=== PATIENT | male | born 1955 | race Caucasian/White ===

== ENCOUNTER → 2017-04-12 | Outpatient (CLI) | payer OTHER ==
--- NOTE | 2017-04-12 11:21 | XR ---
EXAMINATION TYPE: XR lumbosacral spine min 4V DATE OF EXAM: 04/12/2017 COMPARISON: NONE HISTORY: 61-year-old male low back pain TECHNIQUE: 5 views FINDINGS: Moderate degenerative joint space narrowing with endplate spondylosis and sclerosis at the L5-S1 leve l. Facet arthropathy mid to lower lumbar spine. Endplate spondylosis also noted at T11-T12 anteriorly and mild endplate spondylosis throughout. Vertebral body heights are preserved and alignment is main tained. 5 lumbar type vertebral bodies. IMPRESSION: 1. Facet arthropathy mid to lower lumbar spine. No vertebral compression collapse or malalignment. 2. Moderate disc/endplate degenerative change at L5-S1. Additional anterior endplate spondylosis most pronounced at T11-T12.
--- NOTE | 2017-04-12 11:22 | XR ---
EXAMINATION TYPE: XR Hip Complete RT DATE OF EXAM: 04/12/2017 COMPARISON: NONE HISTORY: 61-year-old male with right hip pain TECHNIQUE: 2 views FINDINGS: There is mild superolateral narrowing of hip joint space with marginal spurring and subchondral scler osis along the acetabular roof. No acute fracture, subluxation, or dislocation. IMPRESSION: Mild right hip osteoarthrosis. No acute osseous abnormality seen.
== END | disposition home or self-care (01) ==
LOC: RADXRYALE 09:06
PROVIDERS: ATTEND Internal Medicine
DX: M16.11 Unilateral primary osteoarthritis, right hip (principal); M46.96 Unspecified inflammatory spondylopathy, lumbar region; M47.817 Spondylosis without myelopathy or radiculopathy, lumbosacral region
CPT/HCPCS: 72110; 73502

== ENCOUNTER → 2019-06-07 | Outpatient (CLI) | payer OTHER ==
[2019-06-07 12:20] LABS: Appearance,Urine Clear (Clear); Bilirubin,Urine Negative (Negative); Blood,Urine Negative (Negative); Color,Urine Yellow; Glucose,Urine (UA) Trace (Negative); Ketones,Urine Negative (Negative); Leukocyte Esterase,Urine Negative (Negative); Nitrite,Urine Negative (Negative); Protein,Urine Trace (Negative); Specific Gravity,Urine 1.032 (1.001-1.035); Urobilinogen,Urine <2.0 mg/dL (<2.0)
[2019-06-07 12:26] LABS: HCT 40.9 % (39.0-53.0); HGB 13.8 gm/dL (13.0-17.5); MCH 30.9 pg (25.0-35.0); MCHC 33.8 g/dL (31.0-37.0); MCV 91.6 fL (80.0-100.0); Mean Platelet Volume 8.5; Platelet Count 148 k/uL (150-450); RBC 4.47 m/uL (4.30-5.90); RDW 13.1 % (11.5-15.5); WBC 7.3 k/uL (3.8-10.6)
[2019-06-07 12:38] LABS: ALT 47 U/L (4-49); AST 28 U/L (17-59); African American GFR (CKD) >90 (>60 ml/min/1.73 sqM); Albumin 4.8 g/dL (3.5-5.0); Alkaline Phosphatase 52 U/L (38-126); Anion Gap 11 mmol/L; Blood Urea Nitrogen 21 mg/dL (9-20); Calcium 9.7 mg/dL (8.4-10.2); Carbon Dioxide 22 mmol/L (22-30); Chloride 104 mmol/L (98-107); Glucose 145 mg/dL (74-99); Non-African American GFR(CKD) >90 (>60 ml/min/1.73 sqM); Potassium 4.7 mmol/L (3.5-5.1); Sodium 137 mmol/L (137-145); Total Bilirubin 0.7 mg/dL (0.2-1.3); Total Protein 7.5 g/dL (6.3-8.2)
== END | disposition home or self-care (01) ==
LOC: LABPAT 11:24
PROVIDERS: ATTEND Orthopaedic Surgery
DX: Z01.818 Encounter for other preprocedural examination (principal); Z01.812 Encounter for preprocedural laboratory examination; M16.12 Unilateral primary osteoarthritis, left hip; Z51.81 Encounter for therapeutic drug level monitoring
CPT/HCPCS: 80053; 81003; 85027; 85610; 85730; 87070; 93005

== ENCOUNTER 2019-06-13 05:33 | Day surgery (SDC) | payer OTHER ==
[2019-06-09 15:49] VITALS: BMI 33.0
[~2019-06-13 05:33] MED LIST: ACETAMINOPHEN TAB 500 MG TAB PO ONE; GABAPENTIN 300 MG CAP PO ONE; MELOXICAM 7.5 MG TAB PO ONE; TRANEXAMIC ACID 1,000 MG in SODIUM CHLORIDE 0.9% 100 ML IVPB ONE
[2019-06-13] MEDS ORDERED: ONDANSETRON 4 MG/2 ML VIAL IVP ONE (05:39)
[2019-06-13] MEDS ORDERED: SCOPOLAMINE 1.5MG/72HR PATCH TRANSDERM ONE (05:39)
[2019-06-13] MEDS ORDERED: MIDAZOLAM 2 MG/2 ML VIAL IV PRN (05:39)
[2019-06-13] MEDS ORDERED: HYDROmorphone 0.5 MG/0.5 ML SYRINGE IVP PRN ×3 (05:39→08:56)
[2019-06-13] MEDS ORDERED: DEXAMETHASONE SOD PHOSPHATE 10 MG/ML 1 ML VIAL IV ONE (05:39)
[2019-06-13] MEDS ORDERED: ROPIVACAINE 246.25 MG, EPINEPHrine 0.5 MG, KETOROLAC 30 MG, cloNIDine HCL/PF 80 MCG, WA... MISCELLANE ONE ×5 (06:00)
[2019-06-13 06:12] LABS: Glucose,Whole Blood 149 mg/dL (75-99)
[2019-06-13] MEDS: LACTATED RINGERS 1,000 ML IV SCH (06:12)
[2019-06-13] MEDS ORDERED: fentaNYL (PF) 50 MCG/ML 2 ML AMP ONE (06:53)
[2019-06-13] MEDS ORDERED: TRANEXAMIC ACID 1,000 MG/10 ML VIAL ONE (06:53)
[2019-06-13] MEDS ORDERED: LACTATED RINGERS 1,000 ML BAG IV ONE (06:53)
[2019-06-13] MEDS ORDERED: diphenhydrAMINE 50 MG/ML 1 ML VIAL ONE (06:53)
[2019-06-13] MEDS ORDERED: HEPARIN SODIUM,PORCINE 10,000 UNIT/ML 1 ML VIAL ONE (06:53)
[2019-06-13] MEDS ORDERED: SODIUM CHLORIDE 0.9% 100 ML BAG ONE (06:53)
[2019-06-13] MEDS ORDERED: KETAMINE 10 MG/ML 20 ML VIAL ONE (06:53)
[2019-06-13] MEDS ORDERED: PROPOFOL 10 MG/ML 20 ML VIAL IV ONE (06:53)
[2019-06-13] MEDS ORDERED: MIDAZOLAM 2 MG/2 ML VIAL ONE (06:53)
[2019-06-13] MEDS ORDERED: ceFAZolin 3,000 MG in SODIUM CHLORIDE 0.9% IRRIGATIO 3,000 ML IRRIGATION ONE (07:31)
[2019-06-13] MEDS ORDERED: LACTATED RINGERS 1,000 ML IV ONE (07:37)
--- NOTE | 2019-06-13 08:28 | P.OP ---
Date of Procedure: 06/13/19 Preoperative Diagnosis: Severe osteoarthritis left hip Postoperative Diagnosis: Severe osteoarthritis left hip Procedure(s) Performed: Left total hip arthroplasty with a direct anterior approach Implants: Licona and nephew Polarstem size 5 standard Licona [employer] Nephew R3, 3 hole acetabular shell, 58 mm Licona [employer] Nephew reflection 6.5 mm cancellus screw, 20 mm 2 Licona [employer] Nephew R3, XLPE 20 acetabular liner Licona [employer] Nephew Oxinium femoral head 36 m, +4 All components were press-fit. The articulation is Oxinium on polyethylene. Anesthesia: spinal Surgeon: Rustam Jeffers Records Associate #1: Cory Durbin Estimated Blood Loss (ml): 150 (69 mL returned with Cell Saver) Pathology: other (Femoral head) Condition: stable Disposition: PACU Indications for Procedure: After failure of conservative treatment we discussed the surgical and nonsurgical treatment options at length. Patient wishes to proceed with a total hip arthroplasty with a direct anterior approach. Complications specific to this procedure were discussed at length, including but not limited to infection, leg length discrepancy, dislocation, and nerve injury. Patient is aware of all these complications and informed consent was obtained Operative Findings: The operative findings are consistent with severe osteoarthritis of the left hip Description of Procedure: Patient was seen and evaluated in the preoperative area, consent was reviewed, and the surgical site was marked with a skin marker. Patient was then brought to the operating room and given prophylactic antibiotics intravenously. 1 g of Tranexamic acid was also given. A spinal anesthetic was administered by the anesthesia department. The patient was then placed on the [place] table with the bony prominences well-padded. The hip area was then prepped and draped in usual sterile fashion. A universal timeout was then performed, which confirmed the patient's name, surgical site, ALLERGIES, and procedure being performed. Next the incision site was located at 1 cm distal and 1 cm lateral to the anterior superior iliac spine. The skin and subcutaneous tissues were sharply incised. Incision was carefully dissected down to the fascia overlying the tensor fascia jonny muscle. This fascia was then incised in line with the incision. Next, using blunt finger dissection, the tensor fascia jonny muscle was dissected off its investing fascia. The muscle was then carefully retracted laterally with a cobra retractor over the lateral neck of the femur. Next, the circumflex vessels were identified and cauterized using the AquaMantis device. The anterior hip capsule was then exposed. The capsule was then opened and an inverted T fashion. Cobra retractors were then placed intracapsularly. The proximal femur was then visu alized. The femoral neck was then osteotomized appropriate level above the lesser trochanter. Small amount of traction was placed with the [place] table. A small wedge of bone was then removed from the remaining femoral head. Next, using a corkscrew femoral head was easily removed from the acetabulum. On gross visual inspection, the femoral head had complete loss of articular cartilage in multip le periarticular osteophytes. Attention was then turned to the acetabulum. the acetabulum was exposed and any remaining labrum was excised. Sequential reaming of the acetabulum was performed using fluoroscopic guidance. When the appropriate size was reached, a trial was then placed. The position and fit of the trial was checked with fluoroscopy. The trial was then removed. Then, using fluoroscopic guidance, the final implant was impacted at 20 of anteversion and 40 of abduction, and fully seated in the acetabulum. 2 screws were then placed in the acetabulum. Again fluoroscopy was used to check position of the screws. Next, the liner was then impacted, with a 20 elevated liner located in the anterior superior quadrant. Component locking was confirmed. Attention was then directed to the femur. With the aid of the [place] table, the femur was externally rotated to approximately 130, extended, and abducted under the opposite leg. A side hook was then placed under the proximal femur, and the side hook elevator was used to elevate the proximal femur. Retractors were then placed. A capsular release was performed, as well as a release of the conjoined tendon, which afforded excellent visualization of the proximal femur. Next, a box osteotome was used to lateralize the proximal femur. A pier hand was then used to locate the femoral canal. Sequential broaching was then performed with appropriate size which afforded excellent fixation in the proximal femur. A trial was then placed with appropriate head and neck, and the hip was gently reduced with the aid of the [place] table. Fluoroscopy was then used to check position of the components, as well as to ensure equal leg lengths. The hip was then gently dislocated and the trials were then removed. Final implants were then impacted and the hip was again reduced. Final fluoroscopic x-rays confirmed that the components were in anatomic position, as well as equal leg lengths. The hip was also taken through range of motion, and found to be stable. The hip was then copiously irrigated with antibiotic solution with pulsatile lavage. The hip was then irrigated with Irrisept solution. The soft tissues were then injected with a ropivacaine solution, which consisted of 246.25 mg of ropivacaine, 0.5 mg of epinephrine, 30 mg of Toradol, 80 g of clonidine, and 48.45 mL of sterile water, for a total of 100 mL of fluid injected. A second dose of 1 g of Tranexamic acid was also given. the fascia was then closed with 2-0 strata fix suture. The subcutaneous tissue was closed with 3-0 Vicryl. The subcuticular tissue was closed with 3-0 strata fix suture. The skin was then closed with Dermabond glue and a sterile silver dressing. The patient was then transferred to the recovery room in stable condition. The social services assistant MELISA Melendrez was required due to the complexity of surgery, and the need for skilled surgical territory manager for positioning, draping, exposure, retraction, and closure of the wound.
--- NOTE | 2019-06-13 08:54 | XR ---
EXAMINATION TYPE: XR Hip Limited LT, FL guidance operating room DATE OF EXAM: 06/13/2019 CLINICAL HISTORY: Fluoroscopic documentation during left hip arthroplasty TECHNIQUE: Fluoroscopy. COMPARISON: None. FINDINGS: Fluoroscopic guidance was provided during procedure performed by Dr. Jeffers. A total of 51 seconds of fluoroscopic time was utilized during the procedure and 2 spot images was acquired dur ing left hip arthroplasty. IMPRESSION: As Above.
[2019-06-13] MEDS ORDERED: HYDROmorphone 1 MG/ML 1 ML SYRINGE IVP PRN (08:56)
[2019-06-13] MEDS ORDERED: NALOXONE 0.4 MG/ML 1 ML VIAL IV PRN (08:56)
[2019-06-13] MEDS ORDERED: ONDANSETRON 4 MG/2 ML VIAL IVP PRN (08:56)
[2019-06-13] MEDS ORDERED: HYDROcodone/APAP 5-325MG 1 EACH TAB PO PRN (08:56)
[2019-06-13] MEDS ORDERED: hydrOXYzine PAMOATE 25 MG CAP PO PRN (08:56)
[2019-06-13 09:42] LABS: Glucose,Whole Blood 168 mg/dL (75-99)
--- NOTE | 2019-06-13 10:06 | XR ---
EXAMINATION TYPE: XR Hip Limited LT DATE OF EXAM: 06/13/2019 CLINICAL HISTORY: Left hip pain and osteoarthritis. TECHNIQUE: Single AP portable view of left hip is obtained immediately postoperatively. COMPARISON: None. FINDINGS: Metallic hardware from left hip arthroplasty is seen and appears satisfactory in alignment and position. There is evidence of recent surgery with subcutaneous gas noted laterally. IMPRESSION: Metallic hardware from left hip arthroplasty is satisfactory in position.
[2019-06-13 12:02] LABS: Glucose,Whole Blood 159 mg/dL (75-99)
[2019-06-13] MEDS: INSULIN ASPART (NovoLOG) 100 UNIT/ML VIAL SQ SCH ×3 (12:05→20:28)
--- NOTE | 2019-06-13 14:06 | P.CONS ---
History of Present Illness - Reason for Consult recommendations regarding antihypertensive and diabetic medications. - History of Present Illness is admitted for left hip arthroplasty successfully underwent surgery patient doesn't have a surgical drain doesn't have any Goel catheter patient is clinically doing well patient denied any significant pain patient denied any fever chills dysuria. Review of Systems REVIEW OF SYSTEMS: CONSTITUTIONAL: No fever, no malaise, no fatigue. HEENT: No recent visual problems or hearing problems. Denied any sore throat. CARDIOVASCULAR: No chest pain, orthopnea, PND, no palpitations, no syncope. PULMONARY: No shortness of breath, no cough, no hemoptysis. GASTROINTESTINAL: No diarrhea, no nausea, no vomiting, no abdominal pain. NEUROLOGICAL: No headaches, no weakness, no numbness. HEMATOLOGICAL: Denies any bleeding or petechiae. GENITOURINARY: Denies any burning micturition, frequency, or urgency. MUSCULOSKELETAL/RHEUMATOLOGICAL: Denies any joint pain, swelling, or any muscle pain. ENDOCRINE: Denies any polyuria or polydipsia. The rest of the 14-point review of systems is negative. Past Medical History Past Medical History: Diabetes Mellitus, Hyperlipidemia, Hypertension, O steoarthritis (OA) History of Any Multi-Drug Resistant Organisms: None Reported Additional Past Surgical History / Comment(s): Testicle removed. Past Anesthesia/Blood Transfusion Reactions: Family History of Problems w/ Anesthesia Additional Past Anesthesia/Blood Transfusion Reaction / Comm: "Dad allergic to anesthesia or some kind of medication had jerking and itching." Past Psychological History: No Psychological Hx Reported Smoking Status: Former smoker Past Alcohol Use History: Rare Additional Past Alcohol Use History / Comment(s): Quit smoking 10 yrs ago. Past Drug Use History: Marijuana Additional Drug Use History / Comment(s): Uses Marijuana "once in awhile", last used 30 days ago. - Past Family History Mother Family Medical History: Cancer, Deep Vein Thrombosis (DVT) Medications and Allergies Home Medications Medication Instructions Recorded Confirmed Type Acetaminophen [Tylenol Arthritis] 650 mg PO QAM 06/09/19 06/13/19 History Aspirin [Adult Low Dose Aspirin EC] 81 mg PO DAILY 06/09/19 06/13/19 History Atorvastatin [Lipitor] 40 mg PO HS 06/09/19 06/13/19 History Beet Root 1 dose PO Q48H 06/09/19 06/13/19 History Ferrous Sulfate [Iron] 325 mg PO DAILY 06/09/19 06/13/19 History Lisinopril 20 mg PO QAM 06/09/19 06/13/19 History Niacin (Inositol Niacinate) 500 mg PO DAILY 06/09/19 06/13/19 History [Niacin 500 mg Capsule] Leland-3 Fatty Acids/Fish Oil [Fish 1 each PO DAILY 06/09/19 06/13/19 History Oil 1,000 mg Softgel] Pioglitazone [Actos] 45 mg PO HS 06/09/19 06/13/19 History Super Enzyme 1 tab PO 1700 06/09/19 06/13/19 History metFORMIN HCL 1,000 mg PO BID 06/09/19 06/13/19 History sitaGLIPtin PHOSPHATE [Januvia] 100 mg PO QAM 06/09/19 06/13/19 History Allergies Allergy/AdvReac Type Severity Reaction Status Date / Time No Known Allergies Allergy Verified 06/13/19 06:00 Physical Exam Vitals: Vital Signs Temp Pulse Pulse Resp BP Pulse Ox 06/13/19 12:11 62 147/76 06/13/19 11:56 60 161/81 06/13/19 11:42 57 L 133/76 06/13/19 11:26 58 L 157/72 06/13/19 11:15 97.8 F 56 L 18 154/83 06/13/19 10:30 54 L 18 151/78 95 06/13/19 10:00 52 L 18 152/79 95 06/13/19 09:36 50 L 16 160/76 98 06/13/19 09:21 52 L 16 156/76 99 06/13/19 09:06 54 L 16 151/71 98 06/13/19 08:51 98.4 F 56 L 14 152/69 97 06/13/19 05:58 97.7 F 62 16 178/81 98 Intake and Output 06/12/19 06/13/19 06/13/19 22:59 06:59 14:59 Intake Total 1000 1091 Output Total 150 Balance 1000 941 Intake: IV 1000 851 Oral 240 Output: Estimated Blood Loss 150 Other: Weight 114.4 kg 114.4 kg PHYSICAL EXAMINATION: GENERAL: The patient is alert and oriented x3, not in any acute distress. Well developed, well nourished. HEENT: Pupils are round and equally reacting to light. EOMI. No scleral icterus. No conjunctival pallor. Normocephalic, atraumatic. No pharyngeal erythema. No thyromegaly. CARDIOVASCULAR: S1 and S2 present. No murmurs, rubs, or gallops. PULMONARY: Chest is clear to auscultation, no wheezing or crackles. ABDOMEN: Soft, nontender, nondistended, normoactive bowel sounds. No palpable organomegaly. MUSCULOSKELETAL: No joint swelling or deformity.patient's surgical site areas clean EXTREMITIES: No cyanosis, clubbing, or pedal edema. NEUROLOGICAL: Gross neurological examination did not reveal any focal deficits. SKIN: No rashes. Results Labs: Abnormal Lab Results - Last 24 Hours (Table) 06/13/19 06/13/19 06/13/19 Range/Units 06:10 09:40 12:01 POC Glucose (mg/dL) 149 H 168 H 159 H (75-99) mg/dL Assessment and Plan Plan: -type 2 diabetes mellitus patient will be resumed on his oral hypoglycemic agents except for metformin patient when sliding scale insulin as well -Hypertension: Hold off on DANNY inhibitor to prevent perioperative hypotension depending on her blood pressure early started this medication again -hyperlipidemia -Left hip arthroplasty patient is on DVT prophylaxis with 325 mg twice a day of aspirin
[2019-06-13] MEDS: HYDROcodone/APAP 5-325MG 1 EACH TAB PO PRN ×2 (15:24→20:27)
[2019-06-13 16:32] LABS: Glucose,Whole Blood 160 mg/dL (75-99)
[2019-06-13 20:14] LABS: Glucose,Whole Blood 155 mg/dL (75-99)
[2019-06-13] MEDS: ASPIRIN 325 MG TAB PO SCH (20:27)
[2019-06-13] MEDS ORDERED: SENNOSIDES-DOCUSATE SODIUM 1 EACH TAB PO SCH (21:00)
[2019-06-13] MEDS ORDERED: PIOGLITAZONE 45 MG TAB PO SCH (21:00)
[2019-06-13] MEDS ORDERED: ATORVASTATIN 40 MG TAB PO SCH (21:00)
[2019-06-14] MEDS: LACTATED RINGERS 1,000 ML IV SCH (00:38)
[2019-06-14 06:51] LABS: Glucose,Whole Blood 207 mg/dL (75-99)
[2019-06-14] MEDS: HYDROcodone/APAP 5-325MG 1 EACH TAB PO PRN (07:03)
[2019-06-14] MEDS: ASPIRIN 325 MG TAB PO SCH (07:04)
[2019-06-14] MEDS: INSULIN ASPART (NovoLOG) 100 UNIT/ML VIAL SQ SCH (07:06)
[2019-06-14 07:26] LABS: Basophils % (A) 1 %; Eosinophils # (A) 0.1 k/uL (0-0.7); Eosinophils % (A) 1 %; HCT 36.9 % (39.0-53.0); HGB 12.2 gm/dL (13.0-17.5); Lymphocytes # (A) 0.9 k/uL (1.0-4.8); Lymphocytes % (A) 11 %; MCH 30.3 pg (25.0-35.0); MCHC 33.1 g/dL (31.0-37.0); MCV 91.5 fL (80.0-100.0); Mean Platelet Volume 8.1; Monocytes # (A) 0.5 k/uL (0-1.0); Monocytes % (A) 6 %; Neutrophils # (A) 6.8 k/uL (1.3-7.7); Neutrophils % (A) 81 %; Platelet Count 141 k/uL (150-450); RBC 4.03 m/uL (4.30-5.90); RDW 12.9 % (11.5-15.5); WBC 8.4 k/uL (3.8-10.6)
[2019-06-14 08:12] VITALS: BP 162/74; PULSE 97; RESP 17; TEMP 97.6
[2019-06-14] MEDS ORDERED: LINAGLIPTIN 5 MG TABLET PO SCH (09:00)
[2019-06-14] MEDS ORDERED: NIACIN TR 500 MG CAPLET PO SCH (09:00)
[2019-06-14] MEDS ORDERED: LISINOPRIL 20 MG TAB PO SCH (09:30)
[2019-06-14 09:39] LABS: African American GFR (CKD) >90 (>60 ml/min/1.73 sqM); Anion Gap 8 mmol/L; Blood Urea Nitrogen 19 mg/dL (9-20); Calcium 9.1 mg/dL (8.4-10.2); Carbon Dioxide 23 mmol/L (22-30); Chloride 104 mmol/L (98-107); Glucose 201 mg/dL (74-99); Non-African American GFR(CKD) >90 (>60 ml/min/1.73 sqM); Potassium 4.5 mmol/L (3.5-5.1); Sodium 135 mmol/L (137-145)
--- NOTE | 2019-06-14 10:19 | P.DS ---
Providers Expected date of discharge: 06/14/19 Attending physician: Rustam Jeffers Consults: 06/13/19 08:56 Consult Physician Routine Consulting Provider: Lisa Lebron Consult Reason/Comments: medical management Do you want consulting provider notified?: Yes Primary care physician: Kimberley Yusuf [facility] Course: This is a 64-year-old male with known history of degenerative arthritis of the left hip. The patient presented to Dr. Jeffers for evaluation. After discussion and consideration patient elects to proceed with left total hip arthroplasty. The patient is seen preoperatively by Dr. Yusuf and cleared for surgery. Patient is admitted to [facility] on 06/13/19 for left total hip arthroplasty. The procedures performed without complication or sequelae. The patient is doing well postoperatively. Labs and vital signs are stable on day of discharge. The patient is examined bedside this morning. He states he is doing very well and is experiencing mild pain in the left hip, all else is well controlled at the time. He has been working with physical therapy this morning, and is ambulating with a walker with no issues. He has no complaints today. Patient denies chest pain, shortness of breath, nausea, vomiting, fevers, chills. He is tolerating his diet well. Vital signs stable. On examination, the patient is sitting up in the bedside chair in no apparent di stress. He is alert and oriented 3. On inspection of the left hip, there is a clean, dry, intact OptiForm dressing in place. There is no drainage to the dressing. There is mild pain on palpation of the left hip. Mild swelling of the left hip. Patient has good strength and range of motion of the left ankle. Motor and sensory function appear to be intact in the left lower extremity. The left lower extremity is warm and well perfused with brisk capillary refill distally. Dorsalis pedis pulse palpable. The left calf soft and nontender to palpation. Patient is discharged to home today with home health services in good condition, pending medical clearance. Please see med rec for accurate list of discharge medications. Patient Condition at Discharge: Fair Plan - Discharge Summary Discharge Rx Participant: No New Discharge Prescriptions: New Aspirin 325 mg PO BID 30 Days #60 tab Hydrocodone/Acetaminophen [[place] 5-325] 1 - 2 tab PO Q6H PRN #40 tab PRN Reason: Pain No Action Beet Root 1 dose PO Q48H Lisinopril 20 mg PO QAM Atorvastatin [Lipitor] 40 mg PO HS sitaGLIPtin PHOSPHATE [Januvia] 100 mg PO QAM metFORMIN HCL 1,000 mg PO BID Pioglitazone [Actos] 45 mg PO HS Super Enzyme 1 tab PO 1700 Sargeant-3 Fatty Acids/Fish Oil [Fish Oil 1,000 mg Softgel] 1 each PO DAILY Niacin (Inositol Niacinate) [Niacin 500 mg Capsule] 500 mg PO DAILY Ferrous Sulfate [Iron] 325 mg PO DAILY Aspirin [Adult Low Dose Aspirin EC] 81 mg PO DAILY Acetaminophen [Tylenol Arthritis] 650 mg PO QAM Discharge Medication List Acetaminophen [Tylenol Arthritis] 650 mg PO QAM 06/09/19 [History] Aspirin [Adult Low Dose Aspirin EC] 81 mg PO DAILY 06/09/19 [History] Atorvastatin [Lipitor] 40 mg PO HS 06/09/19 [History] Beet Root 1 dose PO Q48H 06/09/19 [History] Ferrous Sulfate [Iron] 325 mg PO DAILY 06/09/19 [History] Lisinopril 20 mg PO QAM 06/09/19 [History] Niacin (Inositol Niacinate) [Niacin 500 mg Capsule] 500 mg PO DAILY 06/09/19 [History] Sargeant-3 Fatty Acids/Fish Oil [Fish Oil 1,000 mg Softgel] 1 each PO DAILY 06/09/19 [History] Pioglitazone [Actos] 45 mg PO HS 06/09/19 [History] Super Enzyme 1 tab PO 1700 06/09/19 [History] metFORMIN HCL 1,000 mg PO BID 06/09/19 [History] sitaGLIPtin PHOSPHATE [Januvia] 100 mg PO QAM 06/09/19 [History] Aspirin 325 mg PO BID 30 Days #60 tab 06/14/19 [Rx] Hydrocodone/Acetaminophen [Hind[place] 5-325] 1 - 2 tab PO Q6H PRN #40 tab 06/14/19 [Rx] Follow up Appointment(s)/Referral(s): [facility] [NON-STAFF] - As Needed (clarice ) [facility], [NON-STAFF] - As Needed Kimberley Yusuf MD [Primary Care Provider] - 1 Week (office not answering please call to make appointment) Rustam Jeffers DO [Doctor of Osteopathic Medicine] - 06/28/19 2:00 pm Activity/Diet/Wound Care/Special Instructions: Weight-bear as tolerated on your operative leg. Use a walker for ambulation. Keep Optiform dressing in place for 7-10 days. May shower over dressing. Take pain medications as prescribed. Take aspirin for blood clot prevention as prescribed. Follow-up appointment with Dr. Jeffers in the office in 2 weeks. Call the office with any questions or concerns, Discharge Disposition: HOME WITH HOME HEALTH SERVICES
--- NOTE | 2019-06-14 10:21 | P.PN ---
Subjective Progress Note Date: 06/14/19 Principal diagnosis: This is a 64-year-old male who was recently admitted for left hip arthroplasty and successfully underwent surgery with . We were consulted for [facility] management regarding antihypertensive along with diabetic medications. Currently no reports of chest pain, shortness of breath, or palpitations. Patient is afebrile. No reports of nausea or vomiting and patient is tolerating diet. Patient has been up and working with physical therapy and has been walking with a walker through the halls with no difficulties. Patient will be restarted on antihypertensive medication of lisinopril as his blood pressure is 160s systolic. Will resume home medication. Patient will be continuing with home care for physical therapy and then will continue with physical therapy in the outpatient setting. Objective - Vital Signs Vital signs: Vital Signs Temp 97.6 F 06/14/19 07:00 Pulse 97 06/14/19 07:00 Resp 17 06/14/19 07:00 BP 162/74 06/14/19 07:00 Pulse Ox 97 06/14/19 07:00 Intake & Output 06/13/19 06/14/19 06/14/19 18:59 06:59 18:59 Intake Total 1091 60 Output Total 450 Balance 641 60 Weight 114.4 kg Intake: IV 851 Intake, IV Titration 60 Amount Lactated Ringers 1,000 ml 60 @ 20 mls/hr IV .Q24H [facility] Rx#:[id number] Oral 240 Output: Urine 300 Estimated Blood Loss 150 Other: Voiding Method Toilet # Voids 1 1 - Exam GENERAL: The patient is alert and oriented x3, not in any acute distress. Well developed, well nourished. Sitting up in the chair fully dressed after just walking the halls. HEENT: Pupils are round and equally reacting to light. EOMI. No scleral icterus. No conjunctival pallor. Normocephalic, atraumatic. No pharyngeal erythema. No thyromegaly. CARDIOVASCULAR: S1 and S2 present. No murmurs, rubs, or gallops. PULMONARY: Chest is clear to auscultation, no wheezing or crackles. ABDOMEN: Soft, nontender, nondistended, normoactive bowel sounds. No palpable organomegaly. MUSCULOSKELETAL: No joint swelling or deformity.patient's surgical site areas clean EXTREMITIES: No cyanosis, clubbing, or pedal edema. NEUROLOGICAL: Gross neurological examination did not reveal any focal deficits. SKIN: No rashes. - Labs CBC & Chem 7: 06/14/19 06:35 06/14/19 06:35 Labs: Abnormal Lab Results - Last 24 Hours (Table) 06/13/19 06/13/19 06/13/19 Range/Units 12:01 16:31 20:11 RBC (4.30-5.90) m/uL Hgb (13.0-17.5) gm/dL Hct (39.0-53.0) % Plt Count (150-450) k/uL Lymphocytes # (1.0-4.8) k/uL Sodium (137-145) mmol/L Glucose (74-99) mg/dL POC Glucose (mg/dL) 159 H 160 H 155 H (75-99) mg/dL 06/14/19 06/14/19 06/14/19 Range/Units 06:35 06:35 06:49 RBC 4.03 L (4.30-5.90) m/uL Hgb 12.2 L (13.0-17.5) gm/dL Hct 36.9 L (39.0-53.0) % Plt Count 141 L (150-450) k/uL Lymphocytes # 0.9 L (1.0-4.8) k/uL Sodium 135 L (137-145) mmol/L Glucose 201 H (74-99) mg/dL POC Glucose (mg/dL) 207 H (75-99) mg/dL Assessment and Plan Assessment: -type 2 diabetes mellitus patient will be resumed on all home medications -Hypertension: Blood pressure slightly elevated at 160 systolic today and will resume home medications. -hyperlipidemia -Left hip arthroplasty patient is on DVT prophylaxis with 325 mg twice a day of aspirin Plan: Continue with home medications. Will continue to follow along during hospitalization. Patient states he is being discharged today and waiting for his discharge paperwork.
[2019-06-14 21:12] LABS: Hemoglobin A1C 7.4 % (4.0-6.0)
== END 2019-06-14 12:07 | disposition home health service (06) ==
LOC: OR 05:33 → 4SSUR 10:34 → OR 06-14 12:07
PROVIDERS: ATTEND Orthopaedic Surgery
DX: M16.12 Unilateral primary osteoarthritis, left hip (principal); I10 Essential (primary) hypertension; E78.5 Hyperlipidemia, unspecified; E11.9 Type 2 diabetes mellitus without complications; Z79.82 Long term (current) use of aspirin; Z79.899 Other long term (current) drug therapy; Z87.891 Personal history of nicotine dependence; Z90.79 Acquired absence of other genital organ(s); Z79.84 Long term (current) use of oral hypoglycemic drugs
CPT/HCPCS: 97116; 97161; 97535; 97165; 86891; 86900; 86901; 80048; 85025; 86850; 88300; 83036; 73501; 36415; 27130; P9022; C1776; J2250; J0171; J1200; J1644; J0690 ×2; J2405; J3010; J1885; J2795; J2704; J0735; J1170

== ENCOUNTER → 2019-10-16 | Outpatient (CLI) | payer OTHER ==
--- NOTE | 2019-10-16 15:39 | XR ---
Right shoulder HISTORY: Right shoulder pain 3 views of the right shoulder Bone mineralization, joint spaces and alignment are maintained. No fracture or dislocation. Right aamir g apex as visualized is normal. IMPRESSION: Normal right shoulder.
== END | disposition home or self-care (01) ==
LOC: RADXRYALE 14:44
PROVIDERS: ATTEND Internal Medicine
DX: M25.511 Pain in right shoulder (principal)

== ENCOUNTER → 2023-01-29 | Outpatient (CLI) | payer MEDICARE, OTHER ==
--- NOTE | 2023-01-29 09:48 | CTL ---
EXAMINATION TYPE: CT Low Dose Lung DATE OF EXAM ORDERED: 01/29/2023 HISTORY: . Lung cancer screening CT DLP: 103.[address] CTDI: 2.6 mGy Automated exposure control for dose reduction was used. SCREENING VISIT: COMPARISON: None TECHNIQUE: Low dose computed tomography scan was performed through the chest at 1 mm thick sections a nd reconstructed images in multiple planes at 1 mm and [address] DIAGNOSTIC QUALITY: Satisfactory FINDINGS: There is a 3 mm nodule in the right upper lobe axial image 109. The heart is mildly prominent and there is dense coronary artery calcification. Atherosclerotic vázquez e aorta. There is evidence of cholelithiasis. There is pleural-based thickening and subsegmental areas of consolidation. No focal pneumonia, pleura l effusion or pneumothorax. No pleural calcifications. Emphysematous changes are noted. Small pericar dial effusion. There is degenerative change of the spine. Assessment for adenopathy is limited by noncontrast techni que. Grossly no pathologic adenopathy. Calcification aortic valve noted. There is a small hiatal nery ia. Aorta of normal caliber. IMPRESSION: 1. 3 mm nodule right upper lobe too small to characterize but likely benign. 2. Cholelithiasis X line 3. Dense coronary artery atherosclerotic disease correlate clinically. CT LUNG RAD AND CT CHEST RECOMMENDATION: Lung-Rad 2 Benign Appearance or Behavior: Continue annual sc reening with LDCT in 12 months. S Modifier (other clinically significant findings): None
== END | disposition home or self-care (01) ==
LOC: RADCTMAIN 07:07
PROVIDERS: ATTEND Internal Medicine
DX: Z12.2 Encounter for screening for malignant neoplasm of respiratory organs (principal); K80.20 Calculus of gallbladder without cholecystitis without obstruction; I25.10 Atherosclerotic heart disease of native coronary artery without angina pectoris; R91.1 Solitary pulmonary nodule; Z87.891 Personal history of nicotine dependence
CPT/HCPCS: 71271

== ENCOUNTER → 2023-01-29 | Outpatient (CLI) | payer MEDICARE, OTHER ==
--- NOTE | 2023-01-29 07:31 | US ---
EXAMINATION TYPE: US Aorta Screening DATE OF EXAM: 01/29/2023 COMPARISON: NONE CLINICAL INDICATION: Male, 67 years old with history of Z13.6 SCREEN FOR AAA; AAA screening TECHNIQUE: Multiple sonographic images of the abdominal aorta are obtained. FINDINGS: EXAM MEASUREMENTS: Abdominal Aorta: Proximal: 1.9 x 2.3 cm Mid: 1.8 x 1.8 cm Distal: 1.7 x 1.7 cm Bifurcation: TAMMY: 1.0 x 1.1 cm CECILY: 1.1 x 1.1 cm ELEVATOR DISPATCHER NOTES: No evidence of AAA Atherosclerotic manuel IMPRESSION: 1. No abdominal aortic aneurysm by screening ultrasound
== END | disposition home or self-care (01) ==
LOC: RADUSWWP 06:47
PROVIDERS: ATTEND Internal Medicine
DX: Z13.6 Encounter for screening for cardiovascular disorders (principal)
CPT/HCPCS: 76706

== ENCOUNTER → 2023-02-01 | Outpatient (CLI) | payer MEDICARE, OTHER ==
[2023-02-01 12:36] LABS: Basophils # (A) 0.09 X 10*3/uL (0.00-0.10); Basophils % (A) 1.2 %; Eosinophils # (A) 0.29 X 10*3/uL (0.04-0.35); HGB 14.3 d/dL (13.0-17.0); Lymphocytes # (A) 1.49 X 10*3/uL (0.90-5.00); Lymphocytes % (A) 20.7 %; MCH 29.9 pg (27.0-32.0); MCHC 31.8 d/dL (32.0-37.0); MCV 94.1 FL (80.0-97.0); Mean Platelet Volume 11.2 FL (9.5-12.2); Monocytes # (A) 0.52 X 10*3/uL (0.20-1.00); Monocytes % (A) 7.2 %; NRBC Per 100 WBC 0 X 10*3/uL (0.00-0.01); Neutrophils % (A) 66.6 %; Platelet Count 165 X 10*3/uL (140-440); RBC 4.78 X 10*6/uL (4.40-5.60); RDW 13.6 % (11.5-14.5); WBC 7.21 X 10*3/uL (4.50-10.00)
[2023-02-01 12:52] LABS: ALT 35 U/L (10-49); AST 23 U/L (14-35); Albumin 4.6 d/dL (3.8-4.9); Albumin/Globulin Ratio 2.19 Ratio (1.60-3.17); Alkaline Phosphatase 61 U/L (41-126); BUN/Creat Ratio 18.75 Ratio (12.00-20.00); Calcium 9.7 mg/dL (8.7-10.3); Carbon Dioxide 23.5 mmol/L (21.6-31.8); Chloride 104 mmol/L (96-109); Chol/HDL Ratio 4.08 Ratio; Globulin 2.1 d/dL (1.6-3.3); Glucose 134 mg/dL (70-110); LDL Cholesterol,Calculated 93.6 mg/dL (0.0-131.0); Magnesium 1.5 mg/dL (1.5-2.4); Potassium 4.9 mmol/L (3.5-5.5); Prostate Specific Antigen 2.03 ng/mL (0.000-4.500); Sodium 141 mmol/L (135-145); Total Bilirubin 0.5 mg/dL (0.3-1.2); Total Protein 6.7 d/dL (6.2-8.2); Uric Acid 4.6 mg/dL (3.7-8.7)
== END | disposition home or self-care (01) ==
LOC: LABWHC1 07:19
PROVIDERS: ATTEND Internal Medicine
DX: Z12.5 Encounter for screening for malignant neoplasm of prostate (principal); Z11.59 Encounter for screening for other viral diseases; E11.9 Type 2 diabetes mellitus without complications; M10.9 Gout, unspecified
CPT/HCPCS: 36415; 80053; 80061; 83735; 84153; 84443; 84550; 85025; 86803

== ENCOUNTER 2023-05-31 05:25 | Observation (INO) | payer MEDICARE, OTHER ==
--- NOTE | 2023-05-31 05:54 | ED ---
General Adult HPI - General Source: patient Mode of arrival: ambulatory Limitations: no limitations <Viraj Mejía - Last Filed: 05/31/23 06:50> <Luis F Bentley - Last Filed: 05/31/23 08:05> - General Chief complaint: Chest Pain Stated complaint: SOB Time Seen by Provider: 05/31/23 05:48 - History of Present Illness Initial comments: Dictation was produced using [employer] dictation software. please excuse any grammatical, word or spelling errors. Chief Complaint: 68-year-old male presents to the ER for chest pain History of Present Illness: Patient is a 68-year-old male presents emergency department for chest pain states that the chest pain is to his lower chest radiates to his back. States that it woke him up from sleep. Denies that he feels like this is his heart or his lungs. He was diagnosed with pleurisy in the past. Patient denies any numbness tingling to his arms or legs he states that the pain is severe. Denies that his symptoms feel significantly worse with deep inspiration. The ROS documented in this emergency department record has been reviewed and confirmed by me. Those systems with pertinent positive or negative responses have been documented in the HPI. All other systems are other negative and/or noncontributory. (Viraj Mejía) 68-year-old male with lower chest, epigastric pain radiated to his back. I did reevaluate the patient after signout, his symptoms have improved but not resolved. He continues to have lower chest pain. This pain was described as severe both by the patient and the previous physician. CTA of the aorta was performed which was negative for aneurysmal change or dissection, no acute findings. Patient has normal liver enzymes, negative lipase, negative initial troponin. He will be observed overnight with serial cardiac enzymes, telemetry. Case discussed with sound physician group. (Luis F Bentley) - Related Data Home Medications Medication Instructions Recorded Confirmed Acetaminophen [Tylenol Arthritis] 650 mg PO QAM 06/09/19 07/01/21 Atorvastatin [Lipitor] 40 mg PO HS 06/09/19 07/01/21 Ferrous Sulfate [Iron] 325 mg PO DAILY 06/09/19 07/01/21 Niacin (Inositol Niacinate) 500 mg PO DAILY 06/09/19 07/01/21 [Niacin 500 mg Capsule] Pioglitazone [Actos] 45 mg PO HS 06/09/19 07/01/21 lisinopriL 20 mg PO QAM 06/09/19 07/01/21 metFORMIN HCL [Glucophage] 1,000 mg PO BID 06/09/19 07/01/21 Aspirin EC [Ecotrin Low Dose] 81 mg PO DAILY 07/01/21 07/01/21 Empagliflozin [Jardiance] 25 mg PO DAILY 07/01/21 07/01/21 Semaglutide [Rybelsus] 3 mg PO DAILY 07/01/21 07/01/21 Previous Rx's Medication Instructions Recorded HYDROcodone/APAP 7.5-325MG [Lytle 1 each PO Q6HR PRN #28 tab 07/03/21 7.5] Allergies Allergy/AdvReac Type Severity Reaction Status Date / Time No Known Allergies Allergy Verified 07/03/21 07:50 Review of Systems ROS Other: All systems not noted in ROS Statement are negative. <Viraj Mejía - Last Filed: 05/31/23 06:50> ROS Other: All systems not noted in ROS Statement are negative. <Luis F Bentley - Last Filed: 05/31/23 08:05> ROS Statement: Those systems with pertinent positive or pertinent negative responses have been documented in the HPI. Past Medical History Past Medical History: Diabetes Mellitus, Hyperlipidemia, Hypertension, O steoarthritis (OA) History of Any Multi-Drug Resistant Organisms: None Reported Past Surgical History: Joint Replacement Additional Past Surgical History / Comment(s): Testicle removed- A TEEN. LT SALMA. COLONOSCOPY Past Anesthesia/Blood Transfusion Reactions: Family History of Problems w/ Anesthesia Additional Past Anesthesia/Blood Transfusion Reaction / Comment(s): "Dad allergic to anesthesia or some kind of medication had jerking and itching." Past Psychological History: No Psychological Hx Reported Smoking Status: Former smoker - Past Family History Mother Family Medical History: Cancer, Deep Vein Thrombosis (DVT) <Viraj Mejía - Last Filed: 05/31/23 06:50> General Exam Limitations: no limitations <Viraj Mejía - Last Filed: 05/31/23 06:50> - General Exam Comments Initial Comments: PHYSICAL EXAM: General Impression: Alert and oriented x3, distress secondary to pain HEENT: Normocephalic atraumatic, extra-ocular movements intact, pupils equal and reactive to light bilaterally, mucous membranes moist. Cardiovascular: Heart regular rate and rhythm Chest: Able to complete full sentences, no retractions, no tachypnea Abdomen: abdomen soft, non-tender, non-distended, no organomegaly Musculoskeletal: Pulses present and equal in all extremities, no peripheral edema Motor: no focal deficits noted Neurological: CN II-XII grossly intact, no focal motor or sensory deficits noted Skin: Intact with no visualized rashes Psych: Normal affect and mood (Virja Mejía) Course Vital Signs 05/31/23 05/31/23 05/31/23 05:26 05:45 05:49 Temperature 98 F Pulse Rate 51 L 56 L 56 L Respiratory 18 22 18 Rate Blood Pressure 217/80 210/80 178/77 O2 Sat by Pulse 100 100 98 Oximetry EKG Findings - EKG Comments: EKG Findings:: My EKG interpretation: Ventricular rate 51, sinus bradycardia,. 176, QRS 104, QTc 388. No CO prolongation, no QTC prolongation, no ST or T-wave changes noted. Overall, this EKG is unremarkable <Viraj Mejía - Last Filed: 05/31/23 06:50> Medical Decision Making - Lab Data Result diagrams: 05/31/23 05:40 05/31/23 05:40 <Viraj Mejía - Last Filed: 05/31/23 06:50> - Lab Data Result diagrams: 05/31/23 05:40 05/31/23 05:40 <Luis F Bentley - Last Filed: 05/31/23 08:05> - Medical Decision Making Was pt. sent in by a medical professional or institution (, PA, MANUFACTURING BUSINESS ANALYST, urgent care, hospital, or longterm...) When possible be specific @ -No Did you speak to anyone other than the patient for history (EMS, parent, family, police, friend...)? What history was obtained from this source @ -No Did you review nursing and triage notes (agree or disagree)? Why? @ -I reviewed and agree with nursing and triage notes Were old charts reviewed (outside hosp., previous admission, EMS record, old EKG, old radiological studies, urgent care reports/EKG's, longterm records)? Report findings @ -No old charts were reviewed Differential Diagnosis (chest pain, altered mental status, abdominal pain women, abdominal pain men, vaginal bleeding, musculoskeletal, weakness, fever, dyspnea, syncope, headache, dizziness, GI bleed, back pain, seizure, CVA, palpatations, mental health)? @ -Differential Chest Pain: Stable Angina, Unstable Angina, STEMI, NSTEMI Aortic Dissection, Pneumothorax, Musculoskeletal, Esophageal Spasm GERD, Cholecystitis, Pancreatitis, Zoster, this is not meant to be an all-inclusive list. EKG interpreted by me (3pts min.). @ -See above X-rays interpreted by me (1pt min.). @ -None done CT interpreted by me (1pt min.). @ - U/S interpreted by me (1pt. min.). @ -None done What testing was considered but not performed or refused? (CT, X-rays, U/S, labs)? Why? @ -None What meds were considered but not given or refused? Why? @ -None Did you discuss the management of the patient with other professionals (professionals i.e. , PA, MANUFACTURING BUSINESS ANALYST, lab, RT, psych nurse, social media campaign manager, electrical calibrator, teacher, escrow officer, patient case manager)? Give summary @ -No Was smoking cessation discussed for >3mins.? @ -No Was critical care preformed (if so, how long)? @ -No Were there social determinants of health that impacted care today? How? (Homelessness, low income, unemployed, alcoholism, drug addiction, transportation, low edu. Level, literacy, decrease access to med. care, alf, rehab)? @ -No Was there de-escalation of care discussed even if they declined (Discuss DNR or withdrawal of care, Hospice)? DNR status @ -No What co-morbidities impacted this encounter? (DM, HTN, Smoking, COPD, CAD, Cancer, CVA, ARF, Chemo, Hep., AIDS, mental health diagnosis, sleep apnea, m orbid obesity)? @ -None Was patient admitted / discharged? Hospital course, mention meds given and route, prescriptions, significant lab abnormalities, going to OR and other pertinent info. @ -68-year-old male presents to the emergency department with chest pain. Patient acute distress at bedside. Vital signs upon arrival are within acceptable limits. He did report symptoms of chest pain that radiate to the back raising suspicion of possible aortic dissection versus pancreatitis. EKG is unremarkable. Laboratory evaluation is within acceptable limits. Troponin is negative. Pending CT angiography. Patient care signed out to Dr. Bentley at 7:00 AM Undiagnosed new problem with uncertain prognosis? @ -No Drug Therapy requiring intensive monitoring for toxicity (Heparin, Nitro, Insu darron, Cardizem)? @ -No Were any procedures done? @ -No Diagnosis/symptom? Acute, or Chronic, or Acute on Chronic? Uncomplicated (without systemic symptoms) or Complicated (systemic symptoms)? @ -Chest pain (GuillermonViraj D) - Lab Data Lab Results 05/31/23 05/31/23 05/31/23 Range/Units 05:40 05:40 05:40 WBC 12.5 H (3.8-10.6) k/uL RBC 4.87 (4.30-5.90) m/uL Hgb 14.4 (13.0-17.5) gm/dL Hct 44.6 (39.0-53.0) % MCV 91.5 (80.0-100.0) fL MCH 29.5 (25.0-35.0) pg MCHC 32.2 (31.0-37.0) g/dL RDW 13.1 (11.5-15.5) % Plt Count 174 (150-450) k/uL MPV 8.7 Neutrophils % 81 % Lymphocytes % 12 % Monocytes % 4 % Eosinophils % 1 % Basophils % 1 % Neutrophils # 10.1 H (1.3-7.7) k/uL Lymphocytes # 1.5 (1.0-4.8) k/uL Monocytes # 0.5 (0-1.0) k/uL Eosinophils # 0.2 (0-0.7) k/uL Basophils # 0.1 (0-0.2) k/uL PT 10.2 (10.0-12.5) sec INR 0.9 (<1.2) APTT 23.1 (22.0-30.0) sec Sodium 139 (137-145) mmol/L Potassium 4.3 (3.5-5.1) mmol/L Chloride 106 (98-107) mmol/L Carbon Dioxide 23 (22-30) mmol/L Anion Gap 10 mmol/L BUN 20 (9-20) mg/dL Creatinine 0.64 L (0.66-1.25) mg/dL Est GFR (CKD-EPI)AfAm >90 (>60 ml/min/1.73 sqM) Est GFR (CKD-EPI)NonAf >90 (>60 ml/min/1.73 sqM) Glucose 268 H (74-99) mg/dL Calcium 10.0 (8.4-10.2) mg/dL Total Bilirubin 0.8 (0.2-1.3) mg/dL AST 25 (17-59) U/L ALT 37 (4-49) U/L Alkaline Phosphatase 75 (38-126) U/L Troponin I (0.000-0.034) ng/mL Total Protein 7.3 (6.3-8.2) g/dL Albumin 4.8 (3.5-5.0) g/dL Lipase 130 (23-300) U/L 05/31/23 Range/Units 05:40 WBC (3.8-10.6) k/uL RBC (4.30-5.90) m/uL Hgb (13.0-17.5) gm/dL Hct (39.0-53.0) % MCV (80.0-100.0) fL MCH (25.0-35.0) pg MCHC (31.0-37.0) g/dL RDW (11.5-15.5) % Plt Count (150-450) k/uL MPV Neutrophils % % Lymphocytes % % Monocytes % % Eosinophils % % Basophils % % Neutrophils # (1.3-7.7) k/uL Lymphocytes # (1.0-4.8) k/uL Monocytes # (0-1.0) k/uL Eosinophils # (0-0.7) k/uL Basophils # (0-0.2) k/uL PT (10.0-12.5) sec INR (<1.2) APTT (22.0-30.0) sec Sodium (137-145) mmol/L Potassium (3.5-5.1) mmol/L Chloride (98-107) mmol/L Carbon Dioxide (22-30) mmol/L Anion Gap mmol/L BUN (9-20) mg/dL Creatinine (0.66-1.25) mg/dL Est GFR (CKD-EPI)AfAm (>60 ml/min/1.73 sqM) Est GFR (CKD-EPI)NonAf (>60 ml/min/1.73 sqM) Glucose (74-99) mg/dL Calcium (8.4-10.2) mg/dL Total Bilirubin (0.2-1.3) mg/dL AST (17-59) U/L ALT (4-49) U/L Alkaline Phosphatase (38-126) U/L Troponin I <0.012 (0.000-0.034) ng/mL Total Protein (6.3-8.2) g/dL Albumin (3.5-5.0) g/dL Lipase (23-300) U/L Disposition <Viraj Mejía - Last Filed: 05/31/23 06:50> Is patient prescribed a controlled substance at d/c from ED?: No Time of Disposition: 08:05 <Luis F Bentley - Last Filed: 05/31/23 08:05> Clinical Impression: Chest pain Disposition: ADMITTED IP TO THIS HOSP Condition: Stable Referrals: Kvng Parikh DO [Primary Care Provider] - 1-2 days
[2023-05-31 06:02] LABS: Basophils # (A) 0.1 k/uL (0-0.2); Basophils % (A) 1 %; Eosinophils # (A) 0.2 k/uL (0-0.7); Eosinophils % (A) 1 %; HCT 44.6 % (39.0-53.0); HGB 14.4 gm/dL (13.0-17.5); Lymphocytes # (A) 1.5 k/uL (1.0-4.8); Lymphocytes % (A) 12 %; MCH 29.5 pg (25.0-35.0); MCHC 32.2 g/dL (31.0-37.0); MCV 91.5 fL (80.0-100.0); Mean Platelet Volume 8.7; Monocytes # (A) 0.5 k/uL (0-1.0); Monocytes % (A) 4 %; Neutrophils # (A) 10.1 k/uL (1.3-7.7); Neutrophils % (A) 81 %; Platelet Count 174 k/uL (150-450); RBC 4.87 m/uL (4.30-5.90); RDW 13.1 % (11.5-15.5); WBC 12.5 k/uL (3.8-10.6)
[2023-05-31 06:21] LABS: INR 0.9 (<1.2); Partial Thromboplastin Time 23.1 sec (22.0-30.0); Prothrombin Time 10.2 sec (10.0-12.5)
[2023-05-31 06:26] LABS: ALT 37 U/L (4-49); AST 25 U/L (17-59); African American GFR (CKD) >90 (>60 ml/min/1.73 sqM); Albumin 4.8 g/dL (3.5-5.0); Alkaline Phosphatase 75 U/L (38-126); Anion Gap 10 mmol/L; Blood Urea Nitrogen 20 mg/dL (9-20); Carbon Dioxide 23 mmol/L (22-30); Chloride 106 mmol/L (98-107); Glucose 268 mg/dL (74-99); Lipase 130 U/L (23-300); Non-African American GFR(CKD) >90 (>60 ml/min/1.73 sqM); Potassium 4.3 mmol/L (3.5-5.1); Sodium 139 mmol/L (137-145); Total Bilirubin 0.8 mg/dL (0.2-1.3); Total Protein 7.3 g/dL (6.3-8.2)
[2023-05-31] MEDS: MORPHINE SULFATE 4 MG/ML SYRINGE IV STA (06:28)
--- NOTE | 2023-05-31 06:57 | XR ---
EXAMINATION TYPE: XR chest 2V DATE OF EXAM: 05/31/2023 COMPARISON: NONE HISTORY: Abdominal pain and shortness of breath TECHNIQUE: Frontal and lateral views of the chest are obtained. FINDINGS: There is no focal air space opacity, pleural effusion, or pneumothorax seen. The cardiac silhouette size is upper limits of normal. The osseous structures are intact. IMPRESSION: No acute pulmonary process.
--- NOTE | 2023-05-31 07:34 | CT ---
EXAMINATION TYPE: CT angio thor/abd DATE OF EXAM: 05/31/2023 COMPARISON: None HISTORY: chest pain, radiating around back CT DLP: 2317.8 mGycm CONTRAST: CTA thoracic and abdominal aorta with 3-D reconstruction is performed and without and with IV Contras t, patient injected with 100 mL of Isovue 300. Contrast CTA of the thoracic and abdominal aorta was performed from the lung apex through the base of the pelvis. 3-D reconstruction imaging obtained at a separate workstation. CT Chest: THORACIC AORTA: There is no evidence for aneurysm. No dissection or mediastinal hematoma. Mild ath eromatous changes are seen. LUNGS: The lungs are clear and free of infiltrate or atelectasis. Mild scattered emphysematous vázquez es noted. No pulmonary nodule or mass is detected. No pleural effusion or CT evidence of interstitia l lung disease. MEDIASTINUM: The heart is not enlarged. No evidence for mediastinal mass or adenopathy. HILAR STRUCTURES: No evidence for mass. No hilar adenopathy is appreciated. OTHER: No significant abnormality. CONTRAST CT ABDOMEN AND PELVIS ABDOMINAL AORTA: No evidence for abdominal aortic aneurysm. No dissection. Iliac vessels are symmet antony and patent. LIVER/GB-there is evidence of a complicated cyst. 2. PANCREAS- No significant abnormality is seen. SPLEEN- No significant abnormality is seen. ADRENALS- No significant abnormality is seen. KIDNEYS/BLADDER- No significant abnormality is seen. BOWEL- No Significant abnormality GENITAL ORGANS: No gross abnormality seen. LYMPH NODES- No greater than 1cm abdominal or pelvic lymph nodes are appreciated. OSSEOUS STRUCTURES-degenerative changes lower lumbar spine. OTHER- No significant abnormality is seen. IMPRESSION- No evidence for thoracic or abdominal aortic aneurysm or dissection. Scattered atheromatous change se en. Uncomplicated cholelithiasis.
[2023-05-31] MEDS ORDERED: ONDANSETRON 4 MG/2 ML VIAL IVP PRN (08:03)
[2023-05-31] MEDS ORDERED: MORPHINE SULFATE 4 MG/ML SYRINGE IV PRN (08:03)
[2023-05-31] MEDS ORDERED: NALOXONE 0.4 MG/ML 1 ML VIAL IV PRN (08:03)
[2023-05-31] MEDS: MORPHINE SULFATE 4 MG/ML SYRINGE IVP STA (08:36)
[2023-05-31] MEDS: SODIUM CHLORIDE 0.9% 1,000 ML IV SCH (08:41)
[2023-05-31] MEDS: ASPIRIN 325 MG TAB PO STA (08:41)
[2023-05-31 10:01] LABS: Appearance,Urine Clear (Clear); Bilirubin,Urine Negative (Negative); Blood,Urine Negative (Negative); Color,Urine Colorless; Glucose,Urine (UA) 4+ (Negative); Ketones,Urine Negative (Negative); Leukocyte Esterase,Urine Negative (Negative); Nitrite,Urine Negative (Negative); Protein,Urine Negative (Negative); Specific Gravity,Urine >1.050 (1.001-1.035); Urobilinogen,Urine <2.0 mg/dL (<2.0)
--- NOTE | 2023-05-31 12:27 | P.CRDCN ---
History of Present Illness Consult date: 05/31/23 Consult reason: chest pain History of present illness: History of present illness: This is a 68-year-old man with past medical history of diabetes mellitus type 2, hyperlipidemia, hypertension, We have been asked to evaluate the patient for chest pain. Patient states that he had the flu about 7 to 10 days ago and feels like he has had a relapse. The last 2 days he is been sitting up coughing with a little sputum production. He also complains of a headache. He complains of right lateral rib pain and increased abdominal distention. He then developed some low sternal to mid back pain. Patient is seen today in the emergency center waiting for bed on the observation unit. EKG sinus rhythm with no acute change Chest x-ray: No acute process CTA of the chest: No thoracic or abdominal aortic aneurysm or dissection. Scattered atheromatous changes seen. Uncomplicated cholelithiasis. WBC 12.5, hemoglobin 14.4, platelet count 174. INR 0.9. Electrolytes normal. BUN 20 creatinine 0.64. Blood sugar 268. Troponin negative x 2. Liver function test are normal. Lipase 130. Urinalysis 4+ glucose. Home cardiac medications: Aspirin 81 mg daily, atorvastatin 80 mg at bedtime, lisinopril 20 mg daily. Review Of Systems: At the time of my exam: CONSTITUTIONAL: Denies fever or chills. HEENT: Denies blurred vision, vision changes, or eye pain. Denies hemoptysis CARDIOVASCULAR: + chest pain. Denies orthopnea. Denies PND. Denies palpitations RESPIRATORY: Denies shortness of breath. + Cough, + sputum production. GASTROINTESTINAL: Denies abdominal pain. Denies nausea or vomiting. HEMATOLOGIC: Denies bleeding disorders. GENITOURINARY: Denies any blood in urine. SKIN: Denies pruitis. Denies rash. Physical examination: Gen: This is a 68-year-old male in no acute distress. VS: reviewed HEENT: Head is atraumatic, normocephalic. Pupils equal, round. Sclerae is anicteric. NECK: Supple. No JVD. LUNGS: Clear to auscultation. No wheezes or rhonchi. No intercostal retractions. HEART: Regular rate and rhythm. No murmur. ABDOMEN: Soft No tenderness. EXTREMITIES: No pedal edema. No calf tenderness. NEUROLOGICAL: Patient is awake, alert and oriented x3. Assessment: Chest pain most likely musculoskeletal etiology from coughing, rule out acute coronary syndrome Recent influenza Diabetes mellitus type 2 Hypertension Hyperlipidemia Plan: Resume patient's home cardiac medications Repeat troponins Obtain 2-D echocardiogram and Doppler study to assess cardiac structure and function If troponins and echocardiogram are unremarkable, patient is cleared for discharge. Thank you kindly for this consultation. Nurse practitioner note has been reviewed, I agree with documented findings and plan of care. Patient was seen and examined. Past Medical History Past Medical History: Diabetes Mellitus, Hyperlipidemia, Hypertension, Osteoarthritis (OA) History of Any Multi-Drug Resistant Organisms: None Reported Past Surgical History: Joint Replacement Additional Past Surgical History / Comment(s): Testicle removed- A TEEN. LT SALMA. COLONOSCOPY Past Anesthesia/Blood Transfusion Reactions: Family History of Problems w/ Anesthesia Additional Past Anesthesia/Blood Transfusion Reaction / Comment(s): "Dad allergic to anesthesia or some kind of medication had jerking and itching." Past Psychological History: No Psychological Hx Reported Smoking Status: Former smoker - Past Family History Mother Family Medical History: Cancer, Deep Vein Thrombosis (DVT) Medications and Allergies Home Medications Medication Instructions Recorded Confirmed Type Ferrous Sulfate [Iron] 325 mg PO DAILY 06/09/19 05/31/23 History lisinopriL 20 mg PO DAILY 06/09/19 05/31/23 History metFORMIN HCL [Glucophage] 1,000 mg PO BID 06/09/19 05/31/23 History Aspirin EC [Ecotrin Low Dose] 81 mg PO DAILY 07/01/21 05/31/23 History Empagliflozin [Jardiance] 25 mg PO DAILY 07/01/21 05/31/23 History Acetaminophen [Tylenol Arthritis] 1,300 mg PO Q8H PRN 05/31/23 05/31/23 History Atorvastatin [Lipitor] 80 mg PO HS 05/31/23 05/31/23 History Cyanocobalamin (Vitamin B-12) 1,000 mcg PO DAILY 05/31/23 05/31/23 History [Vitamin B-12] Dulaglutide [Trulicity] 1.5 mg SQ MO 05/31/23 05/31/23 History Niacin 500 mg PO DAILY 05/31/23 05/31/23 History Pioglitazone [Actos] 30 mg PO DAILY 05/31/23 05/31/23 History Allergies Allergy/AdvReac Type Severity Reaction Status Date / Time No Known Allergies Allergy Verified 05/31/23 11:28 Physical Exam Vitals: Vital Signs Temp Pulse Resp BP Pulse Ox 05/31/23 05:49 56 L 18 178/77 98 05/31/23 05:45 56 L 22 210/80 100 05/31/23 05:26 98 F 51 L 18 217/80 100 Intake and Output 05/30/23 05/31/23 05/31/23 22:59 06:59 14:59 Other: Weight 108.862 kg Results 05/31/23 05:40 05/31/23 05:40 Cardiac Enzymes 05/31/23 05/31/23 Range/Units 05:40 05:40 AST 25 (17-59) U/L Troponin I <0.012 (0.000-0.034) ng/mL Coagulation 05/31/23 Range/Units 05:40 PT 10.2 (10.0-12.5) sec APTT 23.1 (22.0-30.0) sec CBC 05/31/23 Range/Units 05:40 WBC 12.5 H (3.8-10.6) k/uL RBC 4.87 (4.30-5.90) m/uL Hgb 14.4 (13.0-17.5) gm/dL Hct 44.6 (39.0-53.0) % Plt Count 174 (150-450) k/uL Comprehensive Metabolic Panel 05/31/23 Range/Units 05:40 Sodium 139 (137-145) mmol/L Potassium 4.3 (3.5-5.1) mmol/L Chloride 106 (98-107) mmol/L Carbon Dioxide 23 (22-30) mmol/L BUN 20 (9-20) mg/dL Creatinine 0.64 L (0.66-1.25) mg/dL Glucose 268 H (74-99) mg/dL Calcium 10.0 (8.4-10.2) mg/dL AST 25 (17-59) U/L ALT 37 (4-49) U/L Alkaline Phosphatase 75 (38-126) U/L Total Protein 7.3 (6.3-8.2) g/dL Albumin 4.8 (3.5-5.0) g/dL Current Medications Generic Name Dose Route Start Last Admin Trade Name Freq PRN Reason Stop Dose Admin Sodium Chloride 1,000 mls @ 75 mls/hr 05/31/23 08:15 05/31/23 08:41 Saline 0.9% IV 75 mls/hr .[id number] JUAN Administration Morphine Sulfate 4 mg 05/31/23 08:03 Morphine Sulfate 4 Mg/Ml Syringe IV Q4HR PRN Severe Pain (Scale 7 to 10) Naloxone HCl 0.2 mg 05/31/23 08:03 Naloxone 0.4 Mg/Ml 1 Ml Vial IV Q2M PRN Opioid Reversal Ondansetron HCl 4 mg 05/31/23 08:03 Ondansetron 4 Mg/2 Ml Vial IVP Q8HR PRN Nausea And Vomiting Intake and Output 05/30/23 05/31/23 05/31/23 22:59 06:59 14:59 Other: Weight 108.862 kg 05/31/23 05:40 05/31/23 05:40
[2023-05-31] MEDS: lisinopriL 20 MG TAB PO SCH (13:16)
[2023-05-31] MEDS ORDERED: DEXTROSE 50% SYRINGE 50 ML IVP PRN ×2 (16:12)
--- NOTE | 2023-05-31 16:23 | P.HPIM ---
History of Present Illness H&P Date: 05/31/23 68 year old M with PMH of DM, HTN, HLDA presents to the ED for chest pain. Symptoms started last night around 11PM. Patient reports recovering from the Flu over the past 2 weeks. He has had a residual cough due to this. Chest pain is epigastric, constant, sharp and stabbing with radiation to the ba ck. No aggravating or alleviating factors. Tried taking Tums which did not help. Chest pain was associated with dry heaves. When symptoms were persistent into today this prompted him to go to the ED. In the ED he underwent extensive evaluation. BP 217/80 HR 51 RR 18 100% on RA T 98F. CBC, Coag panel, CMP was signficant for WBC 12.5, Cr 0.64, glu 268. Lipase 130. Troponin < 0.012 x 3. EKG sinus bradycardia. UA 4+ glucose. CTA chest and abdomen showed cholelithiasis and atheromatous changes. Patient is admitted for chest pain, rule out ACS and cardiology evaluation. General: non toxic, no distress, appears at stated age Derm: warm, dry Head: atraumatic, normocephalic, symmetric Eyes: EOMI, no lid lag, anicteric sclera Mouth: no lip lesion, mucus membranes moist Cardiovascular: S1S2 reg, no murmur Abd: Non tender to palpation, not distended. Lungs: CTA bilateral, no rhonchi, no rales , no accessory muscle use Ext: no gross muscle atrophy, no edema, no contractures Neuro: no focal neuro deficits Psych: Alert, oriented, appropriate affect Based on my assessment of this patient, this patient meets a high complexity level of care. Patient has an acute diagnosis of chest pain that poses a threat to life or bodily function. Chest pain: GI versus cardiac. ACS ruled out. Cardiology consulted, recommends Echocardiogram. ASA 81 mg PO QD. Lipitor 80 mg PO QHS. Telemetry monitoring. DM with hyperglycemia: Start insulin sliding scale. Accuchecks ACHS. Hypoglycemic precautions. Leukocytosis: Mildly elevated. No signs of active infection. Continue to monitor. CODE STATUS: FULL CODE DVT Prophylaxis: Lovenox SQ GI Prophylaxis: Designated medical POA if patient is not able to make medical decisions for themselves: I have reviewed the following strategic consultant notes: ED, Cardiology note. I have reviewed the results of the following tests: As above. I have ordered the following tests: As above. I have discussed the care of this patient with the following independent histor leigh ann: . I have independently interpreted the following test below: EKG, CXR. I have discussed the management of this patient with the following physician: Past Medical History Past Medical History: Diabetes Mellitus, Hyperlipidemia, Hypertension, Osteoar thritis (OA) History of Any Multi-Drug Resistant Organisms: None Reported Past Surgical History: Joint Replacement Additional Past Surgical History / Comment(s): Testicle removed- A TEEN. LT SALMA. COLONOSCOPY Past Anesthesia/Blood Transfusion Reactions: Family History of Problems w/ Anesthesia Additional Past Anesthesia/Blood Transfusion Reaction / Comment(s): "Dad nicci rgic to anesthesia or some kind of medication had jerking and itching." Past Psychological History: No Psychological Hx Reported Smoking Status: Former smoker - Past Family History Mother Family Medical History: Cancer, Deep Vein Thrombosis (DVT) Medications and Allergies Home Medications Medication Instructions Recorded Confirmed Type Ferrous Sulfate [Iron] 325 mg PO DAILY 06/09/19 05/31/23 History lisinopriL 20 mg PO DAILY 06/09/19 05/31/23 History metFORMIN HCL [Glucophage] 1,000 mg PO BID 06/09/19 05/31/23 History Aspirin EC [Ecotrin Low Dose] 81 mg PO DAILY 07/01/21 05/31/23 History Empagliflozin [Jardiance] 25 mg PO DAILY 07/01/21 05/31/23 History Acetaminophen [Tylenol Arthritis] 1,300 mg PO Q8H PRN 05/31/23 05/31/23 History Atorvastatin [Lipitor] 80 mg PO HS 05/31/23 05/31/23 History Cyanocobalamin (Vitamin B-12) 1,000 mcg PO DAILY 05/31/23 05/31/23 History [Vitamin B-12] Dulaglutide [Trulicity] 1.5 mg SQ MO 05/31/23 05/31/23 History Niacin 500 mg PO DAILY 05/31/23 05/31/23 History Pioglitazone [Actos] 30 mg PO DAILY 05/31/23 05/31/23 History Allergies Allergy/AdvReac Type Severity Reaction Status Date / Time No Known Allergies Allergy Verified 05/31/23 11:28 Physical Exam Vitals: Vital Signs Temp Pulse Resp BP Pulse Ox 05/31/23 13:00 70 16 149/78 97 05/31/23 05:49 56 L 18 178/77 98 05/31/23 05:45 56 L 22 210/80 100 05/31/23 05:26 98 F 51 L 18 217/80 100 Intake and Output 05/31/23 05/31/23 05/31/23 06:59 14:59 22:59 Other: Weight 108.862 kg Results CBC & Chem 7: 05/31/23 05:40 05/31/23 05:40 Labs: Abnormal Lab Results - Last 24 Hours (Table) 05/31/23 05/31/23 05/31/23 Range/Units 05:40 05:40 09:05 WBC 12.5 H (3.8-10.6) k/uL Neutrophils # 10.1 H (1.3-7.7) k/uL Creatinine 0.64 L (0.66-1.25) mg/dL Glucose 268 H (74-99) mg/dL Ur Specific [place] >1.050 H (1.001-1.035) Urine Glucose (UA) 4+ H (Negative)
[2023-05-31] MEDS: INSULIN ASPART (NovoLOG) 100 UNIT/ML VIAL SQ SCH (17:28)
[2023-05-31 17:35] LABS: Glucose,Whole Blood 171 mg/dL (70-110)
[2023-05-31 19:03] VITALS: RESP 16
[2023-05-31 20:29] LABS: Glucose,Whole Blood 137 mg/dL (70-110)
[2023-05-31] MEDS: ATORVASTATIN 80 MG TAB PO SCH (20:35)
[2023-06-01 06:15] LABS: Glucose,Whole Blood 176 mg/dL (70-110)
[2023-06-01] MEDS: ENOXAPARIN 40 MG/0.4 ML SYRINGE SQ SCH (08:18)
[2023-06-01] MEDS: ASPIRIN 81 MG PO SCH (08:18)
[2023-06-01 08:34] VITALS: BP 175/76; PULSE 64; TEMP 98.5
--- NOTE | 2023-06-01 12:06 | CA ---
Transthoracic Echo Report Name: Sean Garcia Age: 68 Gender: M : 1955 Exam Date: 06/01/2023 09:31 Exam Location: [facility] Ht (in): 73 Wt (lb): 240 Ordering Physician: Donna Burgos Attending/Referring Phys: [id number], Loretta Restaurant Host Janelle Dove RDCS Procedure CPT: Indications: LVF Cardiac Hx: Technical Quality: Fair Contrast 1: Total Dose (mL): Contrast 2: Total Dose (mL): MEASUREMENTS (Male / Female) Normal Values 2D ECHO LV Diastolic Diameter PLAX 4.2 cm 4.2 - 5.9 / 3.9 - 5.3 cm LV Systolic Diameter PLAX 3.1 cm IVS Diastolic Thickness 1.6 cm 0.6 - 1.0 / 0.6 - 0.9 cm LVPW Diastolic Thickness 1.6 cm 0.6 - 1.0 / 0.6 - 0.9 cm LV Relative Wall Thickness 0.8 RV Internal Dim ED PLAX 4.3 cm LA Volume 64.8 cm??? 18 - 58 / 22 - 52 cm??? LA Volume Index 27.0 cm???/m??? 16 - 28 cm???/m??? M-MODE Aortic Root Diameter MM 3.6 cm LA Systolic Diameter MM 4.6 cm LA Ao Ratio MM 1.3 AV Cusp Separation MM 2.1 cm DOPPLER AV Peak Velocity 177.7 cm/s AV Peak Gradient 12.6 mmHg AV Mean Velocity 118.1 cm/s AV Mean Gradient 6.5 mmHg AV Velocity Time Integral 34.2 cm LVOT Peak Velocity 102.0 cm/s LVOT Peak Gradient 4.2 mmHg LVOT Velocity Time Integral 22.4 cm MV Area PHT 4.6 cm??? Mitral E Point Velocity 82.1 cm/s Mitral A Point Velocity 92.1 cm/s Mitral E to A Ratio 0.9 MV Deceleration Time 164.6 ms MV E' Velocity 6.0 cm/s Mitral E to MV E' Ratio 13.7 FINDINGS Left Ventricle Moderately increased left ventricular wall thickness. Left ventricular cavity size normal. Normal left ventricular systolic function with no obvious regional wall motion abnormalities. Left ventricular ejection fraction is estimated at 55-60 %. Right Ventricle Moderate right ventricular dilatation. Right ventricular systolic pressure within normal limits. Right Atrium Normal right atrial size. Left Atrium Mildly increased left atrial volume. Mitral Valve Structurally normal mitral valve. Mitral valve thickened. Mild mitral annular calcification. Mild mitral regurgitation. Aortic Valve Trileaflet aortic valve. No aortic valve stenosis or regurgitation. Tricuspid Valve Structurally normal tricuspid valve. Mild tricuspid regurgitation. Pulmonic Valve Structurally normal pulmonic valve. Trace pulmonic regurgitation. Pericardium No pericardial effusion. Aorta Normal size aortic root and proximal ascending aorta. CONCLUSIONS Normal LV function Previewed by: Dr. Lester Ramirez MD (Electronically Signed) Final Date: 01 June 2023 12:05
--- NOTE | 2023-06-01 12:26 | P.PN ---
Subjective Progress Note Date: 06/01/23 Consult reason: chest pain History of present illness: This is a 68-year-old man with past medical history of diabetes mellitus type 2, hyperlipidemia, hypertension, We have been asked to evaluate the patient for chest pain. Patient states that he had the flu about 7 to 10 days ago and feels like he has had a relapse. The last 2 days he is been sitting up coughing with a little sputum production. He also complains of a headache. He complains of right lateral rib pain and increased abdominal distention. He then developed some low sternal to mid back pain. Patient is seen today in the emergency center waiting for bed on the observation unit. EKG sinus rhythm with no acute change Chest x-ray: No acute process CTA of the chest: No thoracic or abdominal aortic aneurysm or dissection. Scattered atheromatous changes seen. Uncomplicated cholelithiasis. WBC 12.5, hemoglobin 14.4, platelet count 174. INR 0.9. Electrolytes normal. BUN 20 creatinine 0.64. Blood sugar 268. Troponin negative x 2. Liver function test are normal. Lipase 130. Urinalysis 4+ glucose. Home cardiac medications: Aspirin 81 mg daily, atorvastatin 80 mg at bedtime, lisinopril 20 mg daily. 3/5 Patient seen today on the observation unit. Troponins have been negative x 3. Echocardiogram reveals normal normal LV function. Physical examination: Gen: This is a 68-year-old male in no acute distress. VS: reviewed HEENT: Head is atraumatic, normocephalic. Pupils equal, round. Sclerae is anicteric. NECK: Supple. No JVD. LUNGS: Clear to auscultation. No wheezes or rhonchi. No intercostal retractions. HEART: Regular rate and rhythm. No murmur. ABDOMEN: Soft No tenderness. EXTREMITIES: No pedal edema. No calf tenderness. NEUROLOGICAL: Patient is awake, alert and oriented x3. Assessment: Chest pain most likely musculoskeletal etiology from coughing, rule out acute coronary syndrome Recent influenza Diabetes mellitus type 2 Hypertension Hyperlipidemia Plan: Continue patient's home cardiac medications Patient is cleared for discharge and may follow-up in 1 to 2 weeks for outpatient stress test. Cardiology will sign off this case and follow on an as-needed basis. Please reconsult for any new concerns. Nurse practitioner note has been reviewed, I agree with documented findings and plan of care. Patient was seen and examined. Objective - Vital Signs Vital signs: Vital Signs Temp 98.9 F 06/01/23 04:15 Pulse 66 06/01/23 04:15 Resp 16 06/01/23 04:15 BP 122/62 06/01/23 04:15 Pulse Ox 94 L 06/01/23 04:15 FiO2 Intake & Output 05/31/23 06/01/23 06/01/23 18:59 06:59 18:59 Intake Total 240 Balance 240 Weight 108.862 kg Intake: Oral 240 Other: # Voids 1 - Labs CBC & Chem 7: 05/31/23 05:40 05/31/23 05:40 Labs: Abnormal Lab Results - Last 24 Hours (Table) 05/31/23 05/31/23 05/31/23 Range/Units 09:05 17:24 20:28 POC Glucose (mg/dL) 171 H 137 H (70-110) mg/dL Ur Specific [place] >1.050 H (1.001-1.035) Urine Glucose (UA) 4+ H (Negative) 06/01/23 Range/Units 06:13 POC Glucose (mg/dL) 176 H (70-110) mg/dL Ur Specific [place] (1.001-1.035) Urine Glucose (UA) (Negative)
[2023-06-01 12:55] LABS: Glucose,Whole Blood 170 mg/dL (70-110)
--- NOTE | 2023-06-01 13:03 | P.DS ---
Providers Date of admission: 05/31/23 08:04 Expected date of discharge: 06/01/23 Attending physician: Aniya Smith DO Consults: 05/31/23 08:03 Consult Physician Routine Consulting Provider: Bryson Baker Consult Reason/Comments: CP Do you want consulting provider notified?: Yes [facility] Hospital Course: Discharge Diagnosis: Chest/epigastric pain, acute coronary event ruled out. Pain currently resolved. CT did show stable cholelithiasis without acute cholecystitis. Patient started on Protonix 40 mg daily. It is recommended patient follow-up outpatient with dry kiln loader, Dr. Ramirez for further evaluation. Patient cleared from cardiac perspective as cardiac workup negative. Patient to follow-up outpatient with PCP in 1 to 2 days, handicapped teacher in 1 week, and dry kiln loader in 1 to 2 weeks. Hypertension. Continue daily medication regimen with lisinopril 20 mg daily. Hyperlipidemia. Continue daily medication regimen with atorvastatin 80 mg nightly. Type II sub-ejyxcpd-khedtcngp diabetes mellitus. Continue daily medication regimen with Glucophage 1000 mg twice daily, Jardiance 25 mg daily, Actos 30 mg daily, and Trulicity 1.5 mg weekly. Hospital Course: Patient is a pleasant 68-year-old male with a past medical history of hypertension, hyperlipidemia, and type II ybr-ouramwi-zypzuchjd diabetes [place]. He presented to the emergency department on 05/31/2023 with a chief complaint of chest/epigastric pain radiating into his back. He underwent full evaluation in the emergency department. Upon arrival to our facility patient in hypertensive urgency with blood pressure 217/80, heart rate 51, respiratory rate 18, temp 98.0 F, and SpO2 of 100% on room air. EKG was completed showing sinus bradycardia at 51 bpm with no significant T wave or ST abnormalities showing no signs of acute ischemia. Chest x-ray completed negative for acute cardiopulmonary process. CTA chest and abdomen completed showing no evidence for thoracic or abdominal aortic aneurysm or dissection, scattered atheromatous changes and uncomplicated cholelithiasis. Labs were completed and reviewed. CBC showing mild leukocytosis with WBC count of 12.5. Coagulation profile normal findings. BMP unremarkable with exception of hyperglycemia with glucose of 268. Liver profile unremarkable. Lipase normal finding at 130. Troponin was negative at less than 0.012. Patient was admitted under our services with consultation to cardiology. Troponins were trended overnight all negative at less than 0.012 x 3 draws. Echocardiogram was completed showing a preserved EF of 55 to 60% with no significant structural or valvular abnormalities reported. Patient reports being free from previous reported epigastric pain/discomfort at this time. Cardiology clearing patient from cardiac perspective for discharge. Discussed with patient, recommend outpatient follow-up with dry kiln loader to further evaluate for gastric ulcer and if pain returns may need further evaluation of gallbladder. Medically, patient is stable for discharge at this time, patient to follow-up outpatient with PCP in 1 to 2 days, cardiology in 1 week, and recommend outpatient follow-up with dry kiln loader. Patient discharged home on Protonix 40 mg daily in addition to his current medication regimen. Physical exam: Patient seen and examined at bedside. Vital signs reviewed and stable. General: Nontoxic, no distress and appears stated age. Derm: Skin warm and dry, normal coloration for ethnicity. Head: Atraumatic, normocephalic and symmetric. Eyes: EOMs intact, no lid lag, and anicteric sclera Mouth: no lip lesions, mucus membranes moist Cardiovascular: regular rate and rhythm with normal S1S2, no murmur, positive posterior tibial pulses bilaterally, and cap refill < 2 seconds. Lungs: Respirations even, regular, and unlabored on room air. Lungs CTA bilate rally, no rhonchi, no rales, no wheezing, and no accessory muscle usage. Abdominal: soft, nontender to palpation, no guarding, no appreciable organomegaly Ext: ROM intact. No gross muscle atrophy, no edema, no contractures Neuro: Speech clear, face symmetrical and CN II-XII grossly intact with no noted focal neuro deficits Psych: Alert and oriented to person, place, time, and situation. Appropriate and pleasant affect. A total of 32 minutes of time were spent preparing this complex discharge summary. Pt was discharged on 06/01/2023 at 12:57 PM. Patient was seen independently by Nurse Practitioner. This document was prepared using [employer] dictation software. Please allow for errors in microelectronics assembler while rare they do occur. Jose Cole NP rendered care for this patient independently, reviewed the findings and plan as documented in the note above. I did not physically speak with or examine the patient on this date. Patient Condition at Discharge: Stable Plan - Discharge Summary New Discharge Prescriptions: New Pantoprazole [Protonix] 40 mg PO DAILY 90 Days #90 tab Continue lisinopriL 20 mg PO DAILY metFORMIN HCL [Glucophage] 1,000 mg PO BID Ferrous Sulfate [Iron] 325 mg PO DAILY Atorvastatin [Lipitor] 80 mg PO HS Dulaglutide [Trulicity] 1.5 mg SQ MO Cyanocobalamin (Vitamin B-12) [Vitamin B-12] 1,000 mcg PO DAILY Aspirin EC [Ecotrin Low Dose] 81 mg PO DAILY Empagliflozin [Jardiance] 25 mg PO DAILY Niacin 500 mg PO DAILY Pioglitazone [Actos] 30 mg PO DAILY Acetaminophen [Tylenol Arthritis] 1,300 mg PO Q8H PRN PRN Reason: Pain Discharge Medication List Ferrous Sulfate [Iron] 325 mg PO DAILY 06/09/19 [History] lisinopriL 20 mg PO DAILY 06/09/19 [History] metFORMIN HCL [Glucophage] 1,000 mg PO BID 06/09/19 [History] Aspirin EC [Ecotrin Low Dose] 81 mg PO DAILY 07/01/21 [History] Empagliflozin [Jardiance] 25 mg PO DAILY 07/01/21 [History] Acetaminophen [Tylenol Arthritis] 1,300 mg PO Q8H PRN 05/31/23 [History] Atorvastatin [Lipitor] 80 mg PO HS 05/31/23 [History] Cyanocobalamin (Vitamin B-12) [Vitamin B-12] 1,000 mcg PO DAILY 05/31/23 [History] Dulaglutide [Trulicity] 1.5 mg SQ MO 05/31/23 [History] Niacin 500 mg PO DAILY 05/31/23 [History] Pioglitazone [Actos] 30 mg PO DAILY 05/31/23 [History] Pantoprazole [Protonix] 40 mg PO DAILY 90 Days #90 tab 06/01/23 [Rx] Follow up Appointment(s)/Referral(s): Shane Dailey MD [STAFF PHYSICIAN] - 1 Week Kvng Parikh DO [Primary Care Provider] - 1-2 days Lizy Ramirez MD [STAFF PHYSICIAN] - 1 Week (Please schedule an appointment for eval and possible EGD) Activity/Diet/Wound Care/Special Instructions: Activity: As tolerated. Take breaks as needed. Diet: Heart healthy and carb consistent diet. Avoid salts, or foods with hidden salts such as canned or boxed foods and frozen dinners. Extra salt makes your heart work harder and traps the fluid in your body for longer. Special Instructions: Take all of your medications as directed and remember to keep all of your doctor's appointments and follow-up as needed. Thank you for allowing us to participate in your care, it was truly a pleasure having you for our patient!!! Discharge Disposition: HOME SELF-CARE
== END 2023-06-01 13:53 | disposition home or self-care (01) ==
LOC: EC 05:25 → 6NMEDSUR 08:04
PROVIDERS: ADMIT Internal Medicine; ATTEND Internal Medicine
DX: R07.89 Other chest pain (principal); R10.13 Epigastric pain; E11.65 Type 2 diabetes mellitus with hyperglycemia; K80.20 Calculus of gallbladder without cholecystitis without obstruction; E78.5 Hyperlipidemia, unspecified; I10 Essential (primary) hypertension; M19.90 Unspecified osteoarthritis, unspecified site; Z87.891 Personal history of nicotine dependence; Z79.899 Other long term (current) drug therapy; Z79.84 Long term (current) use of oral hypoglycemic drugs; Z79.82 Long term (current) use of aspirin
CPT/HCPCS: 36415; 93306; 80053; 83690; 84484; 85025; 85610; 85730; 81003; 71046; 71275; 74175; G0378 ×2; J2270; Q9967; 96365; 96366; 99285

== ENCOUNTER → 2023-07-13 | Day surgery (SDC) | payer MEDICARE, OTHER ==
[~2023-07-13] MED LIST changes: -ACETAMINOPHEN TAB 500 MG TAB PO ONE; -GABAPENTIN 300 MG CAP PO ONE; +LACTATED RINGERS 1,000 ML IV SCH; +LIDOCAINE 1% (10MG/ML) FOR IV START INTRADERMA PRN; -MELOXICAM 7.5 MG TAB PO ONE; -TRANEXAMIC ACID 1,000 MG in SODIUM CHLORIDE 0.9% 100 ML IVPB ONE
== END ==
LOC: ORWHC2ENDO 10:00
PROVIDERS: ATTEND Internal Medicine Gastroenterology
DX: Z53.8 Procedure and treatment not carried out for other reasons (principal); K21.9 Gastro-esophageal reflux disease without esophagitis

== ENCOUNTER 2023-08-31 08:02 | Day surgery (SDC) | payer MEDICARE, OTHER ==
[2023-08-27 13:20] VITALS: BMI 20.2
[2023-08-31 08:33] VITALS: TEMP 97.1
[2023-08-31] MEDS: LACTATED RINGERS 1,000 ML IV SCH (08:33)
[2023-08-31] MEDS: IV FLUID CONTINUATION 1,000 ML IV ONE (08:33)
[2023-08-31] MEDS: LIDOCAINE 1% (10MG/ML) FOR IV START INTRADERMA PRN (08:34)
[2023-08-31 08:45] LABS: Glucose,Whole Blood 167 mg/dL (70-110)
[2023-08-31] MEDS ORDERED: LIDOCAINE 2% (PF) 20 MG/ML 5 ML VIAL ONE (09:04)
[2023-08-31] MEDS ORDERED: PROPOFOL 10 MG/ML 20 ML VIAL IV ONE (09:04)
--- NOTE | 2023-08-31 09:27 | P.PCN ---
Date of Procedure: 08/31/23 Procedure(s) Performed: BRIEF HISTORY: Patient is a 62-year-old, pleasant, white male scheduled for an upper endoscopy for evaluation of GERD and intermittent dysphagia to solids. PROCEDURE PERFORMED: Esophagogastroduodenoscopy with biopsy. PREOPERATIVE DIAGNOSIS: GERD/intermittent dysphagia to solids. IV sedation per anesthesia. PROCEDURE: After informed consent was obtained, the patient was brought into the endoscopy unit. IV sedation was administered by Anesthesia under continuous monitoring. Initially the Olympus GIF-140 video endoscope was inserted into the mouth. Esophagus intubated without any difficulty. It was gradually advanced into the stomach and duodenum and carefully examined. The bulb and the second part of the duodenum appeared normal. The scope at this time was withdrawn to the stomach, adequately insufflated with air, and upon careful examination, mucosa of the antrum, had mild gastritis and biopsies were done from this area. Mucosa of the body, cardia and the fundus appeared normal. The scope was then withdrawn into the esophagus. The GE junction was located at 39 cm from the incisors. Small hiatal hernia noted. There was short segment of Pedro's esophagus with 3 mm tongues of Pedro's appearing mucosa proximal to the GE junction that was biopsied. The rest of the esophagus appeared normal. There were no erosions or ulcerations seen. No evidence of esophageal stricture noted. And the patient tolerated the procedure well. IMPRESSION: 1. Short segment Pedro's esophagus s/p biopsy. 2. Small hiatal hernia but no evidence of esophageal stricture 3. Mild antral gastritis. RECOMMENDATIONS: The findings of this examination were discussed with the patient as well as his family.. He was advised to follow the biopsy results. Continue with Protonix 40 mg daily and follow antireflux measures.
[2023-08-31 09:47] VITALS: BP 147/85; PULSE 70; RESP 16
== END 2023-08-31 10:01 | disposition home or self-care (01) ==
LOC: ORWHC2ENDO 08:02
PROVIDERS: ATTEND Internal Medicine Gastroenterology
DX: K29.50 Unspecified chronic gastritis without bleeding (principal); K21.00 Gastro-esophageal reflux disease with esophagitis, without bleeding; K22.70 Barrett's esophagus without dysplasia; K31.A0 Gastric intestinal metaplasia, unspecified; K44.9 Diaphragmatic hernia without obstruction or gangrene; Z79.899 Other long term (current) drug therapy
CPT/HCPCS: 88305; 43239; J2704; J2001

== ENCOUNTER → 2023-10-04 | Outpatient (CLI) | payer MEDICARE, OTHER ==
--- NOTE | 2023-10-05 19:07 | US ---
EXAMINATION TYPE: US liver DATE OF EXAM: 10/04/2023 COMPARISON: NONE CLINICAL INDICATION: Male, 68 years old with history of R74.01 ELEVATION OF LEVELS OF LIVER TRANSAMIN ASE L; elevated liver enzymes TECHNIQUE: Multiple sonographic images of the right upper quadrant are obtained. FINDINGS: EXAM MEASUREMENTS: Liver Length: 14.5 cm Gallbladder Wall: 0.24 cm CBD: not seen Right Kidney: 11.7 x 5.9 x 5.8 cm FINE GRADE OPERATOR NOTES: Pancreas: parts seen appear wnl Liver: heterogeneous and increased attenuation compatible with moderate fatty infiltrated liver. Gallbladder: multiple gallstones seen near neck . No pericholecystic fluid or gallbladder wall thick ening evident Evidence for sonographic Giron's sign: No CBD: Not visualized Right Kidney: wnl IMPRESSION: 1. Moderate fatty alteration of the liver. 2. Cholelithiasis without cystitis
== END | disposition home or self-care (01) ==
LOC: RADUSWWP 06:57
PROVIDERS: ATTEND Internal Medicine
DX: K76.0 Fatty (change of) liver, not elsewhere classified (principal); K80.20 Calculus of gallbladder without cholecystitis without obstruction; R74.01 Elevation of levels of liver transaminase levels
CPT/HCPCS: 76705

== ENCOUNTER 2024-01-23 22:39 | Emergency (ER) | payer MEDICARE, OTHER ==
[2024-01-23 22:56] VITALS: TEMP 98.9
--- NOTE | 2024-01-23 23:22 | ED ---
Abdominal Pain HPI - General Chief Complaint: Abdominal Pain Stated Complaint: lung pain Time Seen by Provider: 01/23/24 22:58 Source: patient, RN notes reviewed Mode of arrival: ambulatory Limitations: no limitations - History of Present Illness Initial Comments: This is a 68-year-old male who presents to the emergency department for epigastric/lower chest pain. States that he has had URI symptoms and felt generally unwell over the last week. This morning he started to develop pain under the rib cage and epigastric region bilaterally. The pain got worse a couple of hours prior to arrival. It is painful to breathe and he is struggling to get comfortable. Pain radiates into the back as well. Also reports associated nausea and vomiting. He has a history of pneumonia and pleurisy and states that it feels somewhat similar. It is not difficult to breathe, just painful. He has a minor associated cough. States that he does still feel nauseous. He has been around his brother who has been sick with URI symptoms. MD Complaint: abdominal pain - Related Data Home Medications Medication Instructions Recorded Confirmed Ferrous Sulfate [Iron] 325 mg PO DAILY 06/09/19 08/31/23 lisinopriL 20 mg PO DAILY 06/09/19 08/31/23 metFORMIN HCL [Glucophage] 1,000 mg PO BID 06/09/19 08/31/23 Aspirin EC [Ecotrin Low Dose] 81 mg PO DAILY 07/01/21 08/31/23 Empagliflozin [Jardiance] 25 mg PO DAILY 07/01/21 08/31/23 Atorvastatin [Lipitor] 80 mg PO HS 05/31/23 08/31/23 Cyanocobalamin (Vitamin B-12) 1,000 mcg PO DAILY 05/31/23 08/31/23 [Vitamin B-12] Dulaglutide [Trulicity] 1.5 mg SQ MO 05/31/23 08/31/23 Niacin 500 mg PO DAILY 05/31/23 08/31/23 Pioglitazone [Actos] 30 mg PO DAILY 05/31/23 08/31/23 Acetaminophen [Tylenol Extra 500 - 1,000 mg PO Q4-6H PRN 08/27/23 08/31/23 Strength] Vitamin B 50 Complex 1 tab PO DIRECTED 08/27/23 08/31/23 Previous Rx's Medication Instructions Recorded Pantoprazole [Protonix] 40 mg PO DAILY 90 Days #90 tab 06/01/23 Amoxic-Pot Clav 875-125Mg 1 tab PO Q12HR 7 Days #14 tab 01/24/24 [Augmentin 875-125] Azithromycin [Zithromax] 250 mg PO DIRECTED 5 Days #6 tab 01/24/24 Ketorolac [Toradol] 10 mg PO Q6HR PRN #15 tab 01/24/24 Ondansetron Odt [Zofran Odt] 4 mg PO Q8HR PRN #15 tab 01/24/24 Allergies Allergy/AdvReac Type Severity Reaction Status Date / Time No Known Allergies Allergy Verified 01/23/24 22:55 Review of Systems ROS Statement: Those systems with pertinent positive or pertinent negative responses have been documented in the HPI. ROS Other: All systems not noted in ROS Statement are negative. Past Medical History Past Medical History: Diabetes Mellitus, Hyperlipidemia, Hypertension, Osteoarthritis (OA) History of Any Multi-Drug Resistant Organisms: None Reported Past Surgical History: Joint Replacement, Orthopedic Surgery Additional Past Surgical History / Comment(s): Testicle removed as a teen, total left hip replacement, colonoscopy, left shoulder surgery. Past Anesthesia/Blood Transfusion Reactions: Family History of Problems w/ Anesthesia Additional Past Anesthesia/Blood Transfusion Reaction / Comment(s): "Dad allergic to anesthesia or some kind of medication had jerking and itching." - Spouse could not confirm. Past Psychological History: No Psychological Hx Reported Smoking Status: Former smoker - Past Family History Mother Family Medical History: Cancer, Deep Vein Thrombosis (DVT) General Exam Limitations: no limitations General appearance: alert, in distress Head exam: Present: atraumatic, normocephalic, normal inspection Respiratory exam: Present: normal lung sounds bilaterally. Absent: respiratory distress, wheezes, rales, rhonchi, stridor Cardiovascular Exam: Present: regular rate, normal rhythm, normal heart sounds. Absent: systolic murmur, diastolic murmur, rubs, gallop, clicks GI/Abdominal exam: Present: soft, tenderness (Epigastric), normal bowel sounds. Absent: distended, guarding, rebound, rigid Neurological exam: Present: alert, oriented X3, CN II-XII intact Psychiatric exam: Present: normal affect, normal mood Skin exam: Present: warm, dry, intact, normal color. Absent: rash Course Vital Signs 01/23/24 01/23/24 01/23/24 22:53 23:30 23:45 Temperature 98.9 F Pulse Rate 55 L Respiratory 18 22 24 Rate Blood Pressure 164/71 188/69 185/75 O2 Sat by Pulse 99 Oximetry Medical Decision Making - Medical Decision Making This is a 68 year old male who presents to the emergency department for epigastric pain. Was pt. sent in by a medical professional or institution? @ -No Did you speak to anyone other than the patient for history? @ -No Did you review nursing and triage notes? @ -Yes, and I agree, it is accurate with regards to the patient's symptoms. Were old charts reviewed? @ -No Differential Diagnosis? @ -Pleurisy, pneumonia, pneumothorax, PE, NC, ulcer, this is not meant to be an all-inclusive list. EKG interpreted by me (3pts min.)? @ -EKG interpreted by me demonstrating the following: Sinus bradycardia. Ventricular rate 54 bpm, KS interval 165 ms, QRS duration 102 ms, QTc 396 ms. X-rays interpreted by me (1pt min.)? @ -Chest x-ray obtained, my interpretation identifies no localized consolidations or infiltrates. CT interpreted by me (1pt min.)? @ -CT scan of the chest, abdomen, and pelvis obtained. My interpretation identifies no evidence of bowel wall thickening or free air. U/S interpreted by me (1pt. min.)? @ -Gallbladder ultrasound obtained. My interpretation identifies no evidence of gallbladder wall thickening. What testing was considered but not performed? (CT, X-rays, U/S, labs)? Why? @ -None What meds were considered but not given? Why? @ -None Did you discuss the management of the patient with other professionals? @ -No Did you reconcile home meds? @ -No Was smoking cessation discussed for >3mins.? @ -No Was critical care preformed (if so, how long)? @ -No Were there social determinants of health that impacted care today? How? (Homelessness, low income, unemployed, alcoholism, drug addiction, transportation, low edu. Level, literacy, decrease access to med. care, usp, rehab)? @ -No Was there de-escalation of care discussed even if they declined? (Discuss DNR or withdrawal of care, Hospice)? @ -No What co-morbidities impacted this encounter? (DM, HTN, Smoking, COPD, CAD, Cancer, CVA, Hep., AIDS, mental health diagnosis, sleep apnea, morbid obesity)? @ -DM, hyperlipidemia, hypertension Was patient admitted / discharged? @ -Discharged. Lab work demonstrates leukocytosis with a white blood cell count of 16.4. Lactic acid elevated at 3.1. Magnesium slightly low at 1.4. COVID, influenza, and RSV testing negative. Chest x-ray reveals no acute process. Given the epigastric pain with associated nausea and vomiting, gallbladder ultrasound obtained as well. This revealed the gallbladder being distended with sludge, however there was no wall thickening or pericholecystic fluid to suggest acute cholecystitis. Given the leukocytosis with elevated lactic acid, advised that this could be viral in nature or related to the vomiting, however to exclude other more concerning pathologies, I advised further imaging with a CT scan. Patient was in agreement with this. CT scan of the chest, abdomen, and pelvis revealed no acute process. His pain and nausea were both well-controlled in the emergency department and he was tolerating oral intake. Repeat lactic acid was 1.3. Magnesium replaced with 2 g of magnesium sulfate. We discussed several potential causes of his symptoms, he may be experiencing pleurisy related to an early pneumonia. He may have also had an episode of biliary colic. Advised that he will treat him as a possible pneumonia especially given the URI symptoms and how he had been feeling over the last week. Prescription for Augmentin and azithromycin provided. Zofran prescribed for any additional nausea and Toradol prescribed for pain. Advised he follow a bland and low-fat d iet for the meantime in the event this was related to biliary colic. Information for general surgery follow-up provided in the event a cholecystectomy would be beneficial. He is otherwise given strict return parameters and advised to have close follow-up with his primary care provider. Patient discharged home in stable condition. Case discussed with ED attending Dr. Conrad. Return precautions reviewed in depth, the patient is instructed to return to the emergency department with any new, worsening, or concerning symptoms. Patient verbalized understanding. Undiagnosed new problem with uncertain prognosis? @ -None Drug Therapy requiring intensive monitoring for toxicity (Heparin, Nitro, Insulin, Cardizem)? @ -None Were any procedures done? @ -None Diagnosis/symptom? @ -Abdominal pain, URI, nausea and vomiting Acute, or Chronic, or Acute on Chronic? @ -Acute Uncomplicated (without systemic symptoms) or Complicated (systemic symptoms)? @ -Complicated Side effects of treatment? @ -None Exacerbation, Progression, or Severe Exacerbation] @ -Not applicable Poses a threat to life or bodily function? @ -Unlikely - Lab Data Result diagrams: 01/23/24 23:19 01/23/24 23:19 Lab Results 01/23/24 01/23/24 01/23/24 Range/Units 23:19 23:19 23:19 WBC 16.4 H (3.8-10.6) k/uL RBC 5.14 (4.30-5.90) m/uL Hgb 15.3 (13.0-17.5) gm/dL Hct 46.3 (39.0-53.0) % MCV 90.1 (80.0-100.0) fL MCH 29.8 (25.0-35.0) pg MCHC 33.1 (31.0-37.0) g/dL RDW 13.7 (11.5-15.5) % Plt Count 177 (150-450) k/uL MPV 8.6 Neutrophils % 83 % Lymphocytes % 10 % Monocytes % 4 % Eosinophils % 1 % Basophils % 0 % Neutrophils # 13.6 H (1.3-7.7) k/uL Lymphocytes # 1.7 (1.0-4.8) k/uL Monocytes # 0.6 (0-1.0) k/uL Eosinophils # 0.2 (0-0.7) k/uL Basophils # 0.1 (0-0.2) k/uL PT 10.8 (10.0-12.5) sec INR 1.0 (<1.2) APTT 22.4 (22.0-30.0) sec D-Dimer 0.33 (<0.60) mg/L FEU Sodium 139 (137-145) mmol/L Potassium 3.9 (3.5-5.1) mmol/L Chloride 103 (98-107) mmol/L Carbon Dioxide 22 (22-30) mmol/L Anion Gap 14 mmol/L BUN 26 H (9-20) mg/dL Creatinine 1.17 (0.66-1.25) mg/dL Est GFR (CKD-EPI)AfAm 75 (>60 ml/min/1.73 sqM) Est GFR (CKD-EPI)NonAf 65 (>60 ml/min/1.73 sqM) Glucose 253 H (74-99) mg/dL Lactic Ac Sepsis Rflx Plasma Lactic Acid Mynor (0.7-2.0) mmol/L Calcium 9.8 (8.4-10.2) mg/dL Magnesium 1.4 L (1.6-2.3) mg/dL Total Bilirubin 0.7 (0.2-1.3) mg/dL AST 23 (17-59) U/L ALT 30 (4-49) U/L Alkaline Phosphatase 63 (38-126) U/L Troponin I (0.000-0.034) ng/mL Total Protein 7.4 (6.3-8.2) g/dL Albumin 4.8 (3.5-5.0) g/dL Amylase 85 (30-110) U/L Lipase 196 (23-300) U/L Urine Color Urine Appearance (Clear) Urine pH (5.0-8.0) Ur Specific Cascade (1.001-1.035) Urine Protein (Negative) Urine Glucose (UA) (Negative) Urine Ketones (Negative) Urine Blood (Negative) Urine Nitrite (Negative) Urine Bilirubin (Negative) Urine Urobilinogen (<2.0) mg/dL Ur Leukocyte Esterase (Negative) Heterophile Antibody (Negative) Influenza Type A (PCR) (Not Detectd) Influenza Type B (PCR) (Not Detectd) RSV (PCR) (Not Detectd) SARS-CoV-2 (PCR) (Not Detectd) 01/23/24 01/23/24 01/23/24 Range/Units 23:19 23:19 23:19 WBC (3.8-10.6) k/uL RBC (4.30-5.90) m/uL Hgb (13.0-17.5) gm/dL Hct (39.0-53.0) % MCV (80.0-100.0) fL MCH (25.0-35.0) pg MCHC (31.0-37.0) g/dL RDW (11.5-15.5) % Plt Count (150-450) k/uL MPV Neutrophils % % Lymphocytes % % Monocytes % % Eosinophils % % Basophils % % Neutrophils # (1.3-7.7) k/uL Lymphocytes # (1.0-4.8) k/uL Monocytes # (0-1.0) k/uL Eosinophils # (0-0.7) k/uL Basophils # (0-0.2) k/uL PT (10.0-12.5) sec INR (<1.2) APTT (22.0-30.0) sec D-Dimer (<0.60) mg/L FEU Sodium (137-145) mmol/L Potassium (3.5-5.1) mmol/L Chloride (98-107) mmol/L Carbon Dioxide (22-30) mmol/L Anion Gap mmol/L BUN (9-20) mg/dL Creatinine (0.66-1.25) mg/dL Est GFR (CKD-EPI)AfAm (>60 ml/min/1.73 sqM) Est GFR (CKD-EPI)NonAf (>60 ml/min/1.73 sqM) Glucose (74-99) mg/dL Lactic Ac Sepsis Rflx Plasma Lactic Acid Mynor 3.1 H* (0.7-2.0) mmol/L Calcium (8.4-10.2) mg/dL Magnesium (1.6-2.3) mg/dL Total Bilirubin (0.2-1.3) mg/dL AST (17-59) U/L ALT (4-49) U/L Alkaline Phosphatase (38-126) U/L Troponin I <0.012 (0.000-0.034) ng/mL Total Protein (6.3-8.2) g/dL Albumin (3.5-5.0) g/dL Amylase (30-110) U/L Lipase (23-300) U/L Urine Color Urine Appearance (Clear) Urine pH (5.0-8.0) Ur Specific Cascade (1.001-1.035) Urine Protein (Negative) Urine Glucose (UA) (Negative) Urine Ketones (Negative) Urine Blood (Negative) Urine Nitrite (Negative) Urine Bilirubin (Negative) Urine Urobilinogen (<2.0) mg/dL Ur Leukocyte Esterase (Negative) Heterophile Antibody (Negative) Influenza Type A (PCR) Not Detected (Not Detectd) Influenza Type B (PCR) Not Detected (Not Detectd) RSV (PCR) Not Detected (Not Detectd) SARS-CoV-2 (PCR) Not Detected (Not Detectd) 01/23/24 01/24/24 01/24/24 Range/Units 23:19 00:16 02:05 WBC (3.8-10.6) k/uL RBC (4.30-5.90) m/uL Hgb (13.0-17.5) gm/dL Hct (39.0-53.0) % MCV (80.0-100.0) fL MCH (25.0-35.0) pg MCHC (31.0-37.0) g/dL RDW (11.5-15.5) % Plt Count (150-450) k/uL MPV Neutrophils % % Lymphocytes % % Monocytes % % Eosinophils % % Basophils % % Neutrophils # (1.3-7.7) k/uL Lymphocytes # (1.0-4.8) k/uL Monocytes # (0-1.0) k/uL Eosinophils # (0-0.7) k/uL Basophils # (0-0.2) k/uL PT (10.0-12.5) sec INR (<1.2) APTT (22.0-30.0) sec D-Dimer (<0.60) mg/L FEU Sodium (137-145) mmol/L Potassium (3.5-5.1) mmol/L Chloride (98-107) mmol/L Carbon Dioxide (22-30) mmol/L Anion Gap mmol/L BUN (9-20) mg/dL Creatinine (0.66-1.25) mg/dL Est GFR (CKD-EPI)AfAm (>60 ml/min/1.73 sqM) Est GFR (CKD-EPI)NonAf (>60 ml/min/1.73 sqM) Glucose (74-99) mg/dL Lactic Ac Sepsis Rflx Y Plasma Lactic Acid Mynor (0.7-2.0) mmol/L Calcium (8.4-10.2) mg/dL Magnesium (1.6-2.3) mg/dL Total Bilirubin (0.2-1.3) mg/dL AST (17-59) U/L ALT (4-49) U/L Alkaline Phosphatase (38-126) U/L Troponin I (0.000-0.034) ng/mL Total Protein (6.3-8.2) g/dL Albumin (3.5-5.0) g/dL Amylase (30-110) U/L Lipase (23-300) U/L Urine Color Colorless Urine Appearance Clear (Clear) Urine pH 5.0 (5.0-8.0) Ur Specific Cascade >1.050 H (1.001-1.035) Urine Protein Negative (Negative) Urine Glucose (UA) 4+ H (Negative) Urine Ketones Negative (Negative) Urine Blood Negative (Negative) Urine Nitrite Negative (Negative) Urine Bilirubin Negative (Negative) Urine Urobilinogen <2.0 (<2.0) mg/dL Ur Leukocyte Esterase Negative (Negative) Heterophile Antibody Negative (Negative) Influenza Type A (PCR) (Not Detectd) Influenza Type B (PCR) (Not Detectd) RSV (PCR) (Not Detectd) SARS-CoV-2 (PCR) (Not Detectd) 01/24/24 Range/Units 02:51 WBC (3.8-10.6) k/uL RBC (4.30-5.90) m/uL Hgb (13.0-17.5) gm/dL Hct (39.0-53.0) % MCV (80.0-100.0) fL MCH (25.0-35.0) pg MCHC (31.0-37.0) g/dL RDW (11.5-15.5) % Plt Count (150-450) k/uL MPV Neutrophils % % Lymphocytes % % Monocytes % % Eosinophils % % Basophils % % Neutrophils # (1.3-7.7) k/uL Lymphocytes # (1.0-4.8) k/uL Monocytes # (0-1.0) k/uL Eosinophils # (0-0.7) k/uL Basophils # (0-0.2) k/uL PT (10.0-12.5) sec INR (<1.2) APTT (22.0-30.0) sec D-Dimer (<0.60) mg/L FEU Sodium (137-145) mmol/L Potassium (3.5-5.1) mmol/L Chloride (98-107) mmol/L Carbon Dioxide (22-30) mmol/L Anion Gap mmol/L BUN (9-20) mg/dL Creatinine (0.66-1.25) mg/dL Est GFR (CKD-EPI)AfAm (>60 ml/min/1.73 sqM) Est GFR (CKD-EPI)NonAf (>60 ml/min/1.73 sqM) Glucose (74-99) mg/dL Lactic Ac Sepsis Rflx Plasma Lactic Acid Mynor 1.3 (0.7-2.0) mmol/L Calcium (8.4-10.2) mg/dL Magnesium (1.6-2.3) mg/dL Total Bilirubin (0.2-1.3) mg/dL AST (17-59) U/L ALT (4-49) U/L Alkaline Phosphatase (38-126) U/L Troponin I (0.000-0.034) ng/mL Total Protein (6.3-8.2) g/dL Albumin (3.5-5.0) g/dL Amylase (30-110) U/L Lipase (23-300) U/L Urine Color Urine Appearance (Clear) Urine pH (5.0-8.0) Ur Specific Cascade (1.001-1.035) Urine Protein (Negative) Urine Glucose (UA) (Negative) Urine Ketones (Negative) Urine Blood (Negative) Urine Nitrite (Negative) Urine Bilirubin (Negative) Urine Urobilinogen (<2.0) mg/dL Ur Leukocyte Esterase (Negative) Heterophile Antibody (Negative) Influenza Type A (PCR) (Not Detectd) Influenza Type B (PCR) (Not Detectd) RSV (PCR) (Not Detectd) SARS-CoV-2 (PCR) (Not Detectd) - Radiology Data Radiology results: report reviewed, image reviewed Disposition Clinical Impression: Abdominal pain, URI (upper respiratory infection), Nausea and vomiting Disposition: HOME SELF-CARE Instructions (If sedation given, give patient instructions): Biliary Colic (ED), Gallstones (ED), Upper Respiratory Infection (ED), Acute Nausea and Vomiting (ED) Additional Instructions: Return to the emergency department with any new, worsening, or concerning symptoms. Take the Toradol with Tylenol as needed for pain relief. If you choose to take the Toradol, do not take any other anti-inflammatories such as ibuprofen, take one or the other. Take both antibiotics as prescribed. You can take the Zofran up to every 8 hours as needed for nausea and vomiting. Follow up with your primary care provider in 1-2 days. Consider reaching out to the general surgeon listed below for a follow-up appointment regarding the gallstones. You can also discuss this with your primary care provider. Prescriptions: Amoxic-Pot Clav 875-125Mg [Augmentin 875-125] 1 tab PO Q12HR 7 Days #14 tab Ketorolac [Toradol] 10 mg PO Q6HR PRN #15 tab PRN Reason: Pain Azithromycin [Zithromax] 250 mg PO DIRECTED 5 Days #6 tab Ondansetron Odt [Zofran Odt] 4 mg PO Q8HR PRN #15 tab PRN Reason: Nausea And Vomiting Is patient prescribed a controlled substance at d/c from ED?: No Referrals: Kvng Parikh DO [Primary Care Provider] - 1-2 days Silva Eller DO [Doctor of Osteopathic Medicine] - 1-2 days Time of Disposition: 03:45
[2024-01-23] MEDS: SODIUM CHLORIDE 0.9% 1,000 ML IV STA (23:24)
[2024-01-23] MEDS: MORPHINE SULFATE 4 MG/ML SYRINGE IVP STA (23:26)
[2024-01-23 23:28] LABS: Basophils # (A) 0.1 k/uL (0-0.2); Basophils % (A) 0 %; Eosinophils # (A) 0.2 k/uL (0-0.7); Eosinophils % (A) 1 %; HCT 46.3 % (39.0-53.0); HGB 15.3 gm/dL (13.0-17.5); Lymphocytes # (A) 1.7 k/uL (1.0-4.8); Lymphocytes % (A) 10 %; MCH 29.8 pg (25.0-35.0); MCHC 33.1 g/dL (31.0-37.0); MCV 90.1 fL (80.0-100.0); Mean Platelet Volume 8.6; Monocytes # (A) 0.6 k/uL (0-1.0); Monocytes % (A) 4 %; Neutrophils # (A) 13.6 k/uL (1.3-7.7); Neutrophils % (A) 83 %; Platelet Count 177 k/uL (150-450); RBC 5.14 m/uL (4.30-5.90); RDW 13.7 % (11.5-15.5); WBC 16.4 k/uL (3.8-10.6)
[2024-01-23] MEDS: KETOROLAC 15 MG/ML 1 ML VIAL IVP STA (23:28)
[2024-01-23] MEDS: ONDANSETRON 4 MG/2 ML VIAL IVP STA (23:29)
[2024-01-23 23:39] LABS: ALT 30 U/L (4-49); AST 23 U/L (17-59); African American GFR (CKD) 75 (>60 ml/min/1.73 sqM); Albumin 4.8 g/dL (3.5-5.0); Alkaline Phosphatase 63 U/L (38-126); Amylase 85 U/L (30-110); Anion Gap 14 mmol/L; Blood Urea Nitrogen 26 mg/dL (9-20); Calcium 9.8 mg/dL (8.4-10.2); Carbon Dioxide 22 mmol/L (22-30); Chloride 103 mmol/L (98-107); Glucose 253 mg/dL (74-99); Lipase 196 U/L (23-300); Magnesium 1.4 mg/dL (1.6-2.3); Non-African American GFR(CKD) 65 (>60 ml/min/1.73 sqM); Potassium 3.9 mmol/L (3.5-5.1); Sodium 139 mmol/L (137-145); Total Bilirubin 0.7 mg/dL (0.2-1.3); Total Protein 7.4 g/dL (6.3-8.2)
[2024-01-23 23:41] LABS: Partial Thromboplastin Time 22.4 sec (22.0-30.0); Prothrombin Time 10.8 sec (10.0-12.5)
[2024-01-23] MEDS: PROCHLORPERAZINE INJ 10 MG/2 ML VIAL IVP STA (23:48)
[2024-01-23] MEDS: HYDROmorphone 1 MG/ML 1 ML SYRINGE IVP STA (23:51)
[2024-01-23] MEDS: MAGNESIUM SULFATE-D5W PMX 1 GM in DEXTROSE/WATER 1 100ML.BAG IVPB SCH (23:53)
--- NOTE | 2024-01-24 00:49 | XR ---
EXAM: XR Chest, 2 Views CLINICAL HISTORY: XR Reason: Chest Pain TECHNIQUE: Frontal and lateral views of the chest. COMPARISON: May 31, 2023 FINDINGS: Lungs: Underinflated lungs with mild central bronchovascular crowding. No overt edema or acute focal infiltrate is seen. Pleural space: Unremarkable. No pneumothorax. Heart: The cardiac silhouette is mildly enlarged. Mediastinum: Unremarkable. Normal mediastinal contour. Bones/joints: Mild osteophytosis in the mid to lower thoracic spine. No acute fracture. Upper abdomen: There is no pneumoperitoneum under the diaphragm. IMPRESSION: 1. The cardiac silhouette is mildly enlarged. 2. Underinflated lungs with mild central bronchovascular crowding. No overt edema or acute focal infiltrate is seen.
--- NOTE | 2024-01-24 01:10 | US ---
EXAM: US Abdomen Limited, Gallbladder CLINICAL HISTORY: US Reason: Epigastric pain, N/V TECHNIQUE: Real-time ultrasound of the right upper quadrant with image documentation. COMPARISON: No relevant prior studies available. FINDINGS: Liver: The liver is mildly hyperechoic suggesting fatty infiltration. No focal liver lesion is seen. The liver is not enlarged, measuring 15 cm. The portal vein is patent with normal hepatopetal flow. Gallbladder: The gallbladder is fully distended with sludge and probable small calculi within it. The wall thickness appears normal. No surrounding fluid is visible. Common bile duct: The common bile duct is nondilated measuring 6 mm. Pancreas: The visualized portion of the pancreas is unremarkable. Right kidney: The right kidney measures 10.7 cm with normal appearance. No hydronephrosis. IMPRESSION: The gallbladder is fully distended with sludge and probable small calculi within it. The wall thickness appears normal. No surrounding fluid is visible.
--- NOTE | 2024-01-24 01:46 | CT ---
EXAM: CT Chest With Intravenous Contrast CLINICAL HISTORY: ITS.REASON CT Reason: Epigastric pain, N/V TECHNIQUE: Axial computed tomography images of the chest with intravenous contrast. CTDI is 12.5 mGy and DLP is 1075 mGy-cm. This CT exam was performed using one or more of the following dose reduction techniques: automated exposure control, adjustment of the mA and/or kV according to patient size, and/or use of iterative reconstruction technique. COMPARISON: No relevant prior studies available. FINDINGS: Lungs: Unremarkable. No mass. No consolidation. Pleural space: Unremarkable. No pneumothorax. No significant effusion. Heart: Unremarkable. No cardiomegaly. No significant pericardial effusion. No significant coronary artery calcifications. Bones/joints: Degenerative changes of the spine. No acute fracture. No dislocation. Soft tissues: Unremarkable. Vasculature: Atherosclerotic changes of the aorta. No thoracic aortic aneurysm. Lymph nodes: Unremarkable. No enlarged lymph nodes. IMPRESSION: No acute findings in the chest. EXAM: CT Abdomen and Pelvis With Intravenous Contrast CLINICAL HISTORY: ITS.REASON CT Reason: Epigastric pain, N/V TECHNIQUE: Axial computed tomography images of the abdomen and pelvis with intravenous contrast. CTDI is 12.2 mGy and DLP is 518.9 mGy-cm. This CT exam was performed using one or more of the following dose reduction techniques: automated exposure control, adjustment of the mA and/or kV according to patient size, and/or use of iterative reconstruction technique. COMPARISON: No relevant prior studies available. FINDINGS: Lung bases: Unremarkable. No mass. No consolidation. ABDOMEN: Liver: Unremarkable. No mass. Gallbladder and bile ducts: Cholelithiasis. No ductal dilation. Pancreas: Unremarkable. No mass. No ductal dilation. Spleen: Unremarkable. No splenomegaly. Adrenals: Unremarkable. No mass. Kidneys and ureters: Unremarkable. No solid mass. No hydronephrosis. Stomach and bowel: Diverticulosis, without acute diverticulitis. No small bowel obstruction. No free intraperitoneal air. PELVIS: Appendix: No findings to suggest acute appendicitis. Bladder: Unremarkable. No mass. Reproductive: Unremarkable as visualized. ABDOMEN and PELVIS: Intraperitoneal space: Unremarkable. No free air. No significant fluid collection. Bones/joints: Degenerative changes of the spine. LEFT hip arthroplasty. No acute fracture. No dislocation. Soft tissues: Unremarkable. Vasculature: Atherosclerotic changes of the aorta. No abdominal aortic aneurysm. Lymph nodes: Unremarkable. No enlarged lymph nodes. IMPRESSION: Diverticulosis, without acute diverticulitis. No small bowel obstruction. No free intraperitoneal air.
[2024-01-24 02:12] LABS: Appearance,Urine Clear (Clear); Bilirubin,Urine Negative (Negative); Blood,Urine Negative (Negative); Color,Urine Colorless; Glucose,Urine (UA) 4+ (Negative); Ketones,Urine Negative (Negative); Leukocyte Esterase,Urine Negative (Negative); Nitrite,Urine Negative (Negative); Protein,Urine Negative (Negative); Urobilinogen,Urine <2.0 mg/dL (<2.0)
[2024-01-24 02:20] LABS: Specific Gravity,Urine >1.050 (1.001-1.035)
[2024-01-24] MEDS: IBUPROFEN 600 MG STARTER PACK 4 TAB BTL PO STA (04:19)
[2024-01-24] MEDS: cefTRIAXone IN SWFI 1,000 MG/10 ML SYRINGE IVP STA (04:19)
[2024-01-24] MEDS: ONDANSETRON 4 MG ODT STARTER PACK 2 TAB BTL PO STA (04:20)
[2024-01-24] MEDS: ACET/COD 300 MG/30 MG STARTER PACK 6 TAB BTL PO STA (04:21)
[2024-01-24 04:26] VITALS: BP 154/66; PULSE 78; RESP 16
== END 2024-01-24 04:25 | disposition home or self-care (01) ==
LOC: EC 22:39
CPT/HCPCS: 36415; 71046; 71260; 74177; 76705; 80053; 81003; 82150; 83605; 83690; 83735; 84484; 85025; 85379; 85610; 85730; 86308; 87636; 93005; 96365; 96366; 96375; 99285

== ENCOUNTER 2024-02-17 13:02 | Day surgery (SDC) | payer MEDICARE, OTHER ==
[~2024-02-17 13:02] MED LIST changes: +INDOCYANINE GREEN 25 MG VIAL IV STA; -LACTATED RINGERS 1,000 ML IV SCH; -LIDOCAINE 1% (10MG/ML) FOR IV START INTRADERMA PRN; +MIDAZOLAM 2 MG/2 ML VIAL IV PRN; +fentaNYL (PF) 50 MCG/ML 2 ML AMP IVP PRN
[2024-02-17] MEDS: IV FLUID CONTINUATION 1,000 ML IV ONE ×2 (13:38→16:21)
[2024-02-17] MEDS: LIDOCAINE 1% (10MG/ML) FOR IV START INTRADERMA PRN (13:45)
[2024-02-17] MEDS: LACTATED RINGERS 1,000 ML IV SCH (13:47)
[2024-02-17] MEDS: DEXAMETHASONE SOD PHOSPHATE 4 MG/ML 1 ML VIAL IV ONE (13:47)
[2024-02-17] MEDS: ONDANSETRON 4 MG/2 ML VIAL IVP ONE (13:48)
[2024-02-17] MEDS ORDERED: HYDROmorphone (PF) 1 MG/ML ONE (13:51)
[2024-02-17] MEDS ORDERED: METOPROLOL TARTRATE 5 MG/5 ML VIAL IVP ONE (13:51)
[2024-02-17] MEDS ORDERED: NEOSTIGMINE 1 MG/ML 10 ML VIAL ONE (13:51)
[2024-02-17] MEDS ORDERED: LIDOCAINE 1% INJ 10MG/ML (20 ML MDV) ONE (13:51)
[2024-02-17] MEDS ORDERED: PROPOFOL 10 MG/ML 20 ML VIAL IV ONE (13:51)
[2024-02-17] MEDS ORDERED: ROCURONIUM 10 MG/ML (5 ML VIAL) IV ONE (13:51)
[2024-02-17] MEDS ORDERED: fentaNYL (PF) 50 MCG/ML 2 ML AMP ONE (13:51)
[2024-02-17] MEDS ORDERED: KETOROLAC 15 MG/ML 1 ML VIAL ONE (13:51)
[2024-02-17] MEDS ORDERED: MIDAZOLAM 2 MG/2 ML VIAL ONE (13:51)
[2024-02-17] MEDS ORDERED: SUCCINYLCHOLINE CHLORIDE 200 MG/10 ML VIAL IV ONE (13:51)
[2024-02-17] MEDS ORDERED: GLYCOPYRROLATE 0.2 MG/ML 2 ML VIAL ONE (13:51)
[2024-02-17] MEDS ORDERED: hydrALAZINE HCL 20 MG/ML 1 ML VIAL ONE (13:51)
[2024-02-17 13:52] LABS: Basophils # (A) 0.1 k/uL (0-0.2); Basophils % (A) 1 %; Eosinophils # (A) 0.3 k/uL (0-0.7); Eosinophils % (A) 4 %; HCT 45.2 % (39.0-53.0); HGB 14.8 gm/dL (13.0-17.5); Lymphocytes % (A) 25 %; MCH 29.5 pg (25.0-35.0); MCHC 32.8 g/dL (31.0-37.0); MCV 90.2 fL (80.0-100.0); Mean Platelet Volume 8.1; Monocytes # (A) 0.5 k/uL (0-1.0); Monocytes % (A) 6 %; Neutrophils # (A) 5.1 k/uL (1.3-7.7); Neutrophils % (A) 63 %; Platelet Count 162 k/uL (150-450); RBC 5.01 m/uL (4.30-5.90); RDW 13.6 % (11.5-15.5); WBC 8.1 k/uL (3.8-10.6)
[2024-02-17 13:53] LABS: Glucose,Whole Blood 116 mg/dL (70-110)
[2024-02-17] MEDS: LIDOCAINE 1%-EPI 1:100,000 20 ML VIAL SQ ONE (14:13)
[2024-02-17 15:10] VITALS: TEMP 97.5
[2024-02-17 15:46] VITALS: RESP 16
[2024-02-17] MEDS: HYDROmorphone 0.5 MG/0.5 ML SYRINGE IVP PRN (15:48)
[2024-02-17 18:49] VITALS: BP 155/75; PULSE 75
--- NOTE | 2024-02-17 21:18 | P.OP ---
Date of Procedure: 02/17/24 Preoperative Diagnosis: Chronic calculus cholecystitis Postoperative Diagnosis: Chronic calculus cholecystitis Procedure(s) Performed: Robotic cholecystectomy Anesthesia: AVERY Surgeon: Silva Eller Pathology: other (Gallbladder and contents) Condition: stable Disposition: same day Indications for Procedure: 68-year-old male presented to the surgery clinic with complaint of epigastric and right upper quadrant pain. He did present to the emergency department for these issues as well. Secondary to the increased discomfort and continued symptoms, plan is for robotic cholecystectomy. Risks, benefits and alternatives were provided to the patient. All questions were answered. Operative Findings: Cholelithiasis Distended gallbladder Description of Procedure: The patient was brought to the operating suite and placed in supine position on the operating table. Sedation was provided by anesthesia and the patient underwent endotracheal intubation per the patient was then prepped and draped in regular sterile fashion. Infraumbilical incision was made dissection was carried to the fascia and the fascia was incised and an 8 mm trocar was placed. Two 8 mm trocars were then placed in the right upper quadrant and 1 in the left upper quadrant. Robot was then docked. The gallbladder was then retracted superiorly and laterally. Dissection was carried along the infundibulum towards the cystic duct. ICG was used to confirm anatomy. 2 clips were placed proximally on the cystic duct and 1 was placed distally and the cystic duct was ligated after critical view was obtained. Similarly, 2 clips were placed proximally on the cystic artery after was skeletonized and 1 was placed distally and the cystic artery was ligated. Cautery was then used to dissect the gallbladder off the gallbladder fossa. Hemostasis was noted to be maintained. The gallbladder was then placed in an Endo Catch bag and removed from the abdomen from the infraumbilical incision site. On exam of the liver bed, hemostasis continued to be maintained and no evidence of bile leakage. At this point the infraumbilical fascial incision site was closed using 0 Vicryl suture and Teddy-Santa device under direct visualization. Pneumoperitoneum was released all ports removed from the abdomen. All incision sites were closed with 4-0 Vicryl subcuticular suture. Sterile dressing was applied. The patient was awakened in the operating suite and taken to postanesthesia care unit in stable condition.
== END 2024-02-17 17:51 | disposition home or self-care (01) ==
LOC: OR 13:02
PROVIDERS: ATTEND Surgery
DX: K80.10 Calculus of gallbladder with chronic cholecystitis without obstruction (principal); I10 Essential (primary) hypertension; E78.5 Hyperlipidemia, unspecified; E11.9 Type 2 diabetes mellitus without complications; M19.90 Unspecified osteoarthritis, unspecified site; F12.90 Cannabis use, unspecified, uncomplicated; Z79.899 Other long term (current) drug therapy; Z79.84 Long term (current) use of oral hypoglycemic drugs; Z98.890 Other specified postprocedural states; Z96.642 Presence of left artificial hip joint; Z90.79 Acquired absence of other genital organ(s)
CPT/HCPCS: 47562; S2900; 85025; 88304

== ENCOUNTER → 2024-03-09 | Outpatient (CLI) | payer MEDICARE, OTHER ==
[~2024-03-09] MED LIST changes: +DOBUTamine DRIP for NUC MED 500 MG in DEXTROSE/WATER 1 250ML.BAG IV PRN; +DOBUTamine DRIP for NUC MED 500 MG/250 ML BAG IV ONE; -INDOCYANINE GREEN 25 MG VIAL IV STA; -MIDAZOLAM 2 MG/2 ML VIAL IV PRN; -fentaNYL (PF) 50 MCG/ML 2 ML AMP IVP PRN
--- NOTE | 2024-03-10 10:02 | CA ---
Dobutamine Stress Echocardiogram Report Sean Garcia Age: 68 Gender: M : 1955 Exam Date: 03/09/2024 10:47 Exam Location: [facility] Ordering Physician: Chandler Albarran MD ([id number]) Referring Physician: CHANDLER ALBARRAN,, Brick Pointer: Mao Lemon Technologist: Ht (in): 73 Wt (lb): 230 Procedure CPT: Indication: Z01.818 ICD-9 Codes: Rhythm: Patient History: Cardiac Medications: atorvastatin, lisinopril Medications in past 24 hours: Contrast: N/A Total Dose (mL): NA Stress Results Protocol: Dobutamine Peak Dose (???g/kg/min): 40 Duration (min:sec): Atropine:(mg) None Target HR: 131 Double Product: [id number] Resting HR: 60 Resting BP: 125 / 62 Peak HR: 127 Peak BP: 200 / 78 Max Predicted HR: 154 82 % Max Predicted HR Stress Summary: BP Response: Reason for Termination: INFUSION COMPLETE, DIRECTED PER Cardiac Symptoms: HEAD PRESSURE ECG Analysis Resting EKG: Stress EKG: Arrhythmia: Echo Analysis Base Echo Analysis: Low Echo Anaylsis: Peak Echo Analysis: Recovery Echo: MEASUREMENTS (Male/Female) Normal Values CONCLUSIONS Baseline EKG revealed a normal sinus rhythm with nonspecific upsloping ST segment changes. With dobutamine administration heart rate went up to 128 bpm which is 83% of predicted maximal. Patient did not have any significant symptoms. There was no arrhythmia there was no angina. By EKG criteria this is a unremarkable dobutamine stress test and patient almost achieved 85% of his predicted maximum heart rate with dobutamine administration. Baseline echo images revealed normal wall motion wall thickening. With dobutamine administration there was progressive increase in contractility noted. No evidence of ischemia. Dr. Jolene Frias MD (Electronically Signed) Final Date: 10 March 2024 10:01
== END | disposition home or self-care (01) ==
LOC: RADNMMAIN 09:34
PROVIDERS: ATTEND Internal Medicine Clinical Cardiac Electrophysiology
DX: Z01.818 Encounter for other preprocedural examination (principal)
CPT/HCPCS: 93351; J1250

== ENCOUNTER → 2024-08-24 | Outpatient (CLI) | payer MEDICARE, OTHER ==
--- NOTE | 2024-08-24 09:22 | XR ---
EXAMINATION TYPE: XR hand complete bilateral DATE OF EXAM: 08/24/2024 9:14 AM COMPARISON: None CLINICAL INDICATION: Male, 69 years old with history of M25.532 WRIST PAIN; PHH, pain TECHNIQUE: 3 views each side. FINDINGS: Left: Corticated ossific density radial base of the second proximal phalanx. Moderate degenerative joint sp urring at the first CMC joint. Some vascular calcifications along the radial aspect of the wrist. No acute fracture, subluxation, dislocation. Right: Mild degenerative change with spurring and joint space narrowing at the first CMC joint. On the AP vi ew, possible joint space narrowing at the radial scaphoid joint. Some vascular calcifications of the wrist. No acute fracture, subluxation, dislocation. IMPRESSION: Left: 1. Corticated bone fragment radial aspect of the second proximal phalangeal base suggesting sequela o f old injury. 2. 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 3. No acute osseous abnormality seen. Right: 4. There appears to be some degenerative joint space narrowing at the radioscaphoid joint of the wris t. Consider dedicated wrist radiographs for more adequate assessment. 5. Mild OA at the basal joint of the thumb. 6. No acute osseous abnormality seen. [facility], Workstation: [id number], 08/24/2024 9:20 AM
--- NOTE | 2024-08-24 09:25 | XR ---
EXAMINATION TYPE: XR wrist complete 4 views RT, XR thumb 3 views LT DATE OF EXAM: 08/24/2024 9:14 AM COMPARISON: 08/24/2024 CLINICAL INDICATION: Male, 69 years old with history of M77.8 Thumb tendonitis; PHH, pain FINDINGS: Right Wrist: There is complete loss of cartilage and joint space along the radioscaphoid joint with subchondral sc lerosis. No abnormal widening of the scapholunate interval. Mild degenerative change first CMC joint with marginal spurring. Vascular calcifications. The distal radioulnar joint and midcarpal compartmen t appear intact. No acute fracture, subluxation, dislocation. Left thumb: Moderate degenerative spurring with joint space narrowing at the first CMC joint. There is mild degen erative spurring at the first MCP joint. No acute fracture, subluxation or dislocation seen. IMPRESSION: 1. 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 No acute osseous abnormality seen. No abnormal widening of the scapholunate interval. 2. Left thumb: Moderate OA first CMC joint and mild at the first MCP joint. No acute osseous abnormal ity seen. [facility], Workstation: [email or web address], 08/24/2024 9:23 AM
== END | disposition home or self-care (01) ==
LOC: RADXRMAIN 08:42
PROVIDERS: ATTEND Internal Medicine
DX: M18.11 Unilateral primary osteoarthritis of first carpometacarpal joint, right hand (principal); M19.042 Primary osteoarthritis, left hand; M77.8 Other enthesopathies, not elsewhere classified